=== PATIENT | female | born 1990 | race Caucasian/White ===

== ENCOUNTER 2020-05-21 16:52 | Outpatient (CLI) | payer OTHER, SELFPAY ==
--- NOTE | ~2020-05-21 | MR_ITS ---
EXAMINATION: MR lumbar spine wo con EXAM DATE: 05/21/2020 17:41 INDICATION: Low back pain. History of fall. Bilateral leg pain. TECHNIQUE: Multi-sequential, multiplanar MR images of the lumbar spine were obtained without contrast . Sagittal T1, T2, T2 fat saturation images. Axial T2 weighted images. There is no prior study for comparison. FINDINGS: There is chronic bilateral L5 spondylolysis with 9 mm anterolisthesis L5 on S1, moderate lo ss of this disc height. The vertebral bodies are otherwise aligned. The vertebral body and disc heigh ts are otherwise well maintained. The conus medullaris terminates at the L2 level and has normal sign al intensity and morphology. There are no suspicious marrow signal abnormalities. Paraspinal soft ti ssue is unremarkable. Level by level evaluation: Axial sequence limited from patient motion. T12-L1: Disc does not extend beyond the endplate margin. Facet arthropathy: None. Neural foraminal stenosis: No stenosis. Central canal stenosis: No stenosis. L1-L2: Disc does not extend beyond the endplate margin. Facet arthropathy: None. Neural foraminal stenosis: No stenosis. Central canal stenosis: No stenosis. L2-L3: Disc does not extend beyond the endplate margin. Facet arthropathy: None. Neural foraminal stenosis: No stenosis. Central canal stenosis: No stenosis. L3-L4: Disc does not extend beyond the endplate margin. Facet arthropathy: Minimal. Neural foraminal stenosis: No stenosis. Central canal stenosis: No stenosis. L4-L5: There is a mild diffuse disc bulge. Facet arthropathy: Mild. Neural foraminal stenosis: Mild bilateral. Central canal stenosis: No stenosis. L5-S1: There is a moderate diffuse disc bulge. Facet arthropathy: Mild. Neural foraminal stenosis: Moderate bilateral. Central canal stenosis: Mild. IMPRESSION: Chronic L5 spondylolysis, grade 2 anterolisthesis L5 on S1. Moderate neural foraminal nelson nosis. Reviewed, dictated and finalized at location B. IMPRESSION: Chronic L5 spondylolysis, grade 2 anterolisthesis L5 on S1. Moderat e neural foraminal stenosis.
== END 2020-05-21 16:53 | disposition home or self-care (01) ==
PROVIDERS: PCP Nurse Practitioner Family; Visit Provider Nurse Practitioner Adult Health
DX: M54.5 Low back pain (principal); M47.816 Spondylosis without myelopathy or radiculopathy, lumbar region; M43.16 Spondylolisthesis, lumbar region; M48.061 Spinal stenosis, lumbar region without neurogenic claudication
CPT/HCPCS: 72148

== ENCOUNTER 2020-06-25 08:03 | Outpatient (CLI) | payer OTHER, SELFPAY ==
--- NOTE | ~2020-06-25 | CT_ITS ---
EXAMINATION: CT abdomen pelvis w con EXAM DATE: 06/25/2020 08:58 INDICATION: Abdominal pain for one month. Loss of appetite. TECHNIQUE: Spiral CT of the abdomen and pelvis was performed following intravenous injection of 100 m L Omnipaque 350. Axial, coronal and sagittal images were reviewed. The dose-length product (DLP) fo r this examination was 225.80 mGy-cm. The exposure was tailored according to patient size (auto mA e xposure control), and iterative reconstruction (ASIR) was used as additional dose reduction technique . There is no prior study for comparison. FINDINGS: The liver, spleen, adrenal glands and pancreas are unremarkable. The gallbladder is contra cted but otherwise unremarkable. Portal and splenic veins are patent. Kidneys enhance symmetrically . There is no hydronephrosis. There is IUD which appears to be centrally located within the endome trium, expected position. The bladder is unremarkable. There is no retroperitoneal or pelvic lympha denopathy. Small umbilical fat-containing hernia. The appendix is normal. The stomach and small bowel are unremarkable. There is expected amount of c olonic stool. No free intraperitoneal gas. The heart is normal in size. There are no pericardial or pleural effusions. The lung bases are unremarkable. Chronic bilateral L5 spondylolysis with gra de 2 anterolisthesis L5 on S1. IMPRESSION: 1. No acute intra-abdominal findings. 2. Chronic L5 spondylolysis, grade 2 anterolisthesis. 3. Small umbilical hernia. Reviewed, dictated and finalized at location A. [employer]
== END 2020-06-25 08:04 | disposition home or self-care (01) ==
PROVIDERS: PCP Nurse Practitioner Family; Visit Provider Nurse Practitioner Family
DX: R10.9 Unspecified abdominal pain (principal); M47.816 Spondylosis without myelopathy or radiculopathy, lumbar region; K42.9 Umbilical hernia without obstruction or gangrene; Z97.5 Presence of (intrauterine) contraceptive device
CPT/HCPCS: 74177; Q9967

== ENCOUNTER 2021-06-14 00:21 | Observation (INO) | payer OTHER, SELFPAY ==
[2021-06-14] VITALS (8 sets, daily range): BP systolic 100–146; BP diastolic 52–90; PULSE 74–102; RESP 14–21; TEMP 36.3–37.9; O2SAT 98–100; BMI 18.8
--- NOTE | 2021-06-14 | ECHO_ITS ---
Patient Info Name: Bibi Castillo Age: 31 years : 1990 Gender: Female Ht: 64 in Wt: 105 lbs BSA: 1.46 m2 HR: 69 bpm BP: 113 / 59 mmHg Technical Quality: Fair Exam Date: 06/14/2021 1:58 PM Exam Location: [facility] Patient Status: Outpatient Admit Date: 06/14/2021 Staff Ordering Physician: Lavon Jones MD Farm Loan Inspector: Albin Dumont RDCS, RT Attending Provider: Lani Sparrow PA-C Referring Physician: Robert FARIAS; Exam Type: CA echo doppler color flow Study Info Indications I52 - Other heart disorders in diseases classified elsewhere Complete two-dimensional, color flow and Doppler transthoracic echocardiogram is performed. Strain analysis performed. Summary 1. Complete two-dimensional, color flow and Doppler transthoracic echocardiogram is performed. 2. Left ventricular chamber dimension is normal. 3. Left ventricular systolic function is normal, estimated at 65-70%. 4. The left ventricular diastolic function is normal. 5. E/e' 6 is not elevated. 6. Global longitudinal strain is normal at -20.6%. Left Ventricle E/e' 6 is not elevated. Global longitudinal strain is normal at -20.6%. Left ventricular chamber dimension is normal. Left ventricular systolic function is normal, estimated at 65-70%. The left ventricular diastolic function is normal. Right Ventricle Right ventricular systolic function is normal and with normal TAPSE 2.1 cm. Right ventricular chamber dimension is normal. Left Atria Left atrial chamber dimension is normal. Right Atria Right atrial chamber dimension is normal. Aortic Valve The aortic valve is not well visualized. Cannot determine number of aortic valve leaflets. There is no aortic valve stenosis. There is no aortic valve regurgitation. Pulmonic Valve The pulmonic valve is not well visualized. Mitral Valve There is no mitral valve stenosis. There is no mitral valve regurgitation. Tricuspid Valve There is no tricuspid valve regurgitation. Pericardium/Pleural There is no pericardial effusion. Inferior Vena Cava Normal inferior vena cava with >50% collapse upon inspiration consistent with normal right atrial pressure, 5 mmHg. Aorta The aortic root size at the sinus of Valsalva is normal. Left Ventricular Outflow Tract Name Value Normal LVOT 2D LVOT Diameter 2.0 cm LVOT Doppler LVOT Peak Gradient 5 mmHg LVOT Mean Gradient 2 mmHg LVOT VTI 19 cm LVOT VTI/AV VTI Ratio 0.8 LVOT Stroke Volume 59 ml LVOT CO 4.5 l/min LVOT CI 3.1 l/min/m2 Mitral Valve Name Value Normal MV Doppler MV Decel [place] 441 cm/s2 MV PHT
[2021-06-14] MEDS: LACTATED RINGERS 1,000 ML 999 ML IV CONT (01:15)
[2021-06-14 01:28] LABS: Basophils Absolute Auto 0.1 K/mm3 (0.0-0.1); Basophils Percent Auto 0.3 % (0.2-1.2); Eosinophils Absolute Auto 0.1 K/mm3 (0-0.3); Eosinophils Percent Auto 0.3 % (0-4.4); Hematocrit 38.6 % (37.0-47.0); Hemoglobin 12.2 g/dL (12.0-15.0); Immature Granulocyte Absolute 0.07 K/mm3 (0.00-0.031); Immature Granulocyte Percent A 0.5 % (0-0.5); Lymphocytes Absolute Auto 1.33 K/mm3 (0.9-3.2); Lymphocytes Percent Auto 8.8 % (18.3-44.2); Mean Corpuscular HGB Conc 31.6 g/dl (32-36); Mean Corpuscular Volume 91.7 fl (80-100); Monocytes Absolute Auto 0.8 K/mm3 (0.1-0.6); Monocytes Percent Auto 5.3 % (2.6-8.5); Neutrophils Absolute Auto 12.8 K/mm3 (1.3-6.7); Neutrophils Percent Auto 84.8 % (45.5-73.1); Platelet Count Result 357 k/mm3 (150-375); Red Blood Count 4.21 M/mm3 (4.2-5.4); Red Cell Distribution Width 12.9 % (11.5-14.5)
[2021-06-14 01:38] LABS: INR 1.1; Partial Thromboplastin Time 35.2 SECONDS (22.3-36.8); Prothrombin Time 14.1 Seconds (11.1-14.7)
[2021-06-14 01:39] LABS: Lactic Acid Reflex 0.9 mmol/L (0.7-2.1)
--- NOTE | 2021-06-14 01:47 | ED.SKABFB ---
HPI - Skin/Abscess/Foreign Bdy General Chief complaint: Skin/Abscess/Foreign Body <Cash Washington MD - Last Filed: 06/14/21 02:26> Stated complaint: multiple abscess, L arm, Bilat hips <Cash Washington MD - Last Filed: 06/14/21 02:26> Time Seen by Provider: 06/14/21 00:35 <Cash Washington MD - Last Filed: 06/14/21 02:26> History of Present Illness HPI narrative: Patient is a 31-year-old female who presents ER with concerns for abscess and cellulitis. 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 Reports over the last 2 weeks her left hip has been swelling and becoming worn intensely painful. She also reports chronic pain induration to her left proximal upper extremity for the last 6 months. Occasionally will have a small area of drainage. Patient reports due to increasing pain and swelling she is sought care. She has history of injection abscess in the past that required wound VAC application. <Cash Washington MD - Last Filed: 06/14/21 02:26> Related Data Allergies/Adverse reactions: Allergies Allergy/AdvReac Type Severity Reaction Status Date / Time amoxicillin Allergy Hives Verified 06/14/21 00:41 <Cash Washington MD - Last Filed: 06/14/21 02:26> Review of Systems Review of Systems: All systems reviewed & are unremarkable except as noted in HPI and below <Cash Washington MD - Last Filed: 06/14/21 02:26> Constitutional: Constitutional: Denies chills, Denies fever(s) and Denies weakness <Cash Washington MD - Last Filed: 06/14/21 02:26> ENT: Denies nasal congestion and Denies sore throat <Cash Washington MD - Last Filed: 06/14/21 02:26> Cardiovascular: Cardiovascular: Denies chest pain and Denies radiating jaw, neck or arm pain <Cash Washington MD - Last Filed: 06/14/21 02:26> Respiratory: Respiratory: Denies chest congestion, Denies cough and Denies dyspnea <Cash Washington MD - Last Filed: 06/14/21 02:26> Gastrointestinal: Gastrointestinal: Denies abdominal pain, Denies nausea and Denies vomiting <Cash Washington MD - Last Filed: 06/14/21 02:26> Musculoskeletal: Musculoskeletal: Denies arthralgias and Denies joint swelling <Cash Washington MD - Last Filed: 06/14/21 02:26> Integumentary/Breasts: Comments: Abscess and cellulitis of left lower extremity, redness left proximal arm. <Cash Washington MD - Last Filed: 06/14/21 02:26> [facility] Past Medical History Medical History: Medical History (Updated 06/14/21 @ 03:28 by Alice Kimball MD) Bipolar 1 disorder <Cash Washington MD - Last Filed: 06/14/21 02:26> Surgical History Surgical History: Surgical History (Updated 06/14/21 @ 01:50 by Cash Washington MD) History of section <Cash Washington MD - Last Filed: 06/14/21 02:26> Social History Social History: Social History (Updated 06/14/21 @ 01:50 by Cash Washington MD) Smoking status: Current every day smoker Substance use type: IV drugs <Cash Washington MD - Last Filed: 06/14/21 02:26> Exam Narrative: GENERAL: Chronically ill-appearing, thin, and in no acute distress. HEAD: Normocephalic, atraumatic. ENT: Mucous membranes moist. CHEST: Clear to auscultation. No respiratory distress. HEART: Tachycardic and regular. Normal peripheral pulses. ABDOMEN: Soft, nontender, nondistended. EXTREMITIES: Normal range of motion. No edema. SKIN: Warm, dry. Large abscess her left hip with old tract lin and surrounding cellulitis. Left upper extremity with mild erythema along the shoulder and proximal half of the humerus, tract lin noted, one fluctuant area but no overt abscess. NEURO: Alert and oriented x3. PSYCH: Normal mood and affect. <Cash Washington MD - Last Filed: 06/14/21 02:26> Course Reevaluation(s) Reevaluation #1: Patient presents with multiple infected wounds and abscess for IV drug use. Dr. Washington consult Dr. kumar irving
[2021-06-14] MEDS: HYDROmorphone HCL INJ (*CRX) 1 MG/ML SYR IV PUSH (02:07)
[2021-06-14 02:12] LABS: Alanine Aminotransferase 7 U/L (4-35); Albumin Level 4.5 g/dL (3.5-5.1); Alkaline Phosphatase 55 U/L (38-126); Anion Gap 11 mmol/L (8-16); Aspartate Amino Transferase 19 U/L (14-36); Bilirubin,Total 0.5 mg/dL (0.2-1.3); Blood Urea Nitrogen 17 mg/dL (7-17); CRP 5.9 mg/dL (<1.0); Calcium 9.6 mg/dL (8.4-10.2); Carbon Dioxide 29 mmol/L (22-30); Chloride 101 mmol/L (98-107); Estimated Glomerular Filt Rate > 60; Glucose 77 mg/dL (65-110); Potassium 4.2 mmol/L (3.4-5.0); Sodium 141 mmol/L (137-145)
--- NOTE | 2021-06-14 03:29 | PM.IMHP ---
H&P: HPI History of Present Illness Date/Time: 06/14/21 03:29 Chief Complaint: Abscesses Narrative: This is a 31-year-old female with past medical history significant for IVDU, A skin abscesses in the past, tobacco dependence, currently using E cigarettes, poor appetite, weight loss. Patient presented to emergency room due to multiple abscesses localized to the injection sites on her shoulders and hips, states that they usually go away but this time around she keeps getting especially the 1 on her shoulder keep coming back and is been there for months . While in the emergency room she had a fever and she had two of the abscesses I&D. Patient states that she has been having night sweats, chills, she denies any abdominal pain, nausea, vomiting ,diarrhea no shortness of breath, no cough, no sputum production. Preliminary workup was significant for a C reactive protein was 5.9 a total white blood cell count of 15,000. Review of Systems Review of Systems: Multiple skin abscesses weight loss poor appetite chills Constitutional: Constitutional: Reports chills, Reports fever(s), Reports lethargy, Reports malaise, Reports night sweats, Reports weakness and Reports weight loss Eyes: Eyes: Denies change in vision ENT: Denies dysphagia, Denies vertigo, Denies dizziness, Denies nasal congestion, Denies nasal discharge, Denies nasal obstruction and Denies odynophagia Cardiovascular: Cardiovascular: Denies irregular heart rhythm, Denies claudication, Denies leg edema, Denies lightheadedness, Denies radiating jaw, neck or arm pain, Denies palpitations, Denies dyspnea, Denies dyspnea on exertion and Denies orthopnea Respiratory: Respiratory: Denies cough, Denies excessive phlegm production, Denies dyspnea and Denies wheezing Gastrointestinal: Gastrointestinal: Denies abdominal pain, Denies dyspepsia, Denies heartburn, Denies diarrhea, Denies nausea and Denies vomiting Genitourinary: Genitourinary: Denies dysuria and Denies flank pain Musculoskeletal: Musculoskeletal: Denies arthralgias and Denies joint swelling Integumentary/Breasts: Skin/Breast: Reports non-healing lesions (Abscesses localized to the injection area) Neurologic: Denies focal weakness and Denies Sensory deficit (Neuro) Psychiatric: Psychiatric: Reports no additional psychiatric complaints and Reports as per HPI Endocrine: Endocrine: Reports no additional endocrine complaints and Reports as per HPI Hematologic/Lymphatic: Hematologic/Lymphatic: Reports no additional hematologic/lymphatic complaints and Reports as per HPI Allergic/Immunologic: Allergic/Immunologic: Reports no additional allergic/immunologic complaints and Reports as per HPI [facility] Past Medical History Medical History (Updated 06/14/21 @ 04:15 by Lavon Jones MD) Bipolar 1 disorder Surgical History Surgical History (Updated 06/14/21 @ 01:50 by Cash Washington MD) History of section Social History Social History (Updated 06/14/21 @ 01:50 by Cash Washington MD) Smoking status: Current every day smoker Substance use type: IV drugs Meds Home Medications and Allergies Allergies Allergy/AdvReac Type Severity Reaction Status Date / Time amoxicillin Allergy Hives Verified 06/14/21 00:41 Vital Signs Vital Signs - 24 hr 06/14/21 00:28 06/14/21 01:50 06/14/21 02:14 Temperature 100.3 F H 99.4 F 99.4 F Pulse Rate 102 H 93 Respiratory Rate 20 18 Blood Pressure 146/90 H 113/59 L Pulse Oximetry 99 100 Exam Narrative: Laying in nupur Const: General: cooperative, comfortable, no acute distress, well developed, alert, awake, ill appearing and other (Appears older than stated age) Nutritional Appearance: average body habitus and thin Orientation/consciousness: patient oriented x3 HENMT: Head: normal to inspection, normocephalic and atraumatic Ears: hearing grossly normal bilaterally General nose exam: Normal external nose present Face and sinus: normal facial
[2021-06-14] MEDS: SODIUM CHLORIDE 0.9% IV 1,000 ML 125 ML IV CONT (06:57)
[2021-06-14] MEDS: ENOXAPARIN 40 MG/0.4 ML SYRINGE SUB-Q (09:13)
[2021-06-14 09:58] LABS: Hepatitis B Surface Antigen Negative (Negative)
[2021-06-14 10:04] LABS: HAV RESULT Negative (Negative); Hepatitis B Core IgM Result Negative (Negative)
[2021-06-14 10:07] LABS: HIV 1/2 Ab P24 Ag Result Negative (Negative)
--- NOTE | 2021-06-14 10:14 | PM.CNGS ---
Assessment and Plan Assessment and plan (1) Abscess of skin or subcutaneous tissue: Code(s): L02.91 - Cutaneous abscess, unspecified Status: Acute Assessment and Plan: s/p I and D, cont to follow closely, cont local wound care, IV abx (2) Sepsis: Code(s): A41.9 - Sepsis, unspecified organism Status: Acute Assessment and Plan: see above (3) Active intravenous drug use: Code(s): F19.90 - Other psychoactive substance use, unspecified, uncomplicated Status: Acute Assessment and Plan: encourage cessation History of Present Illness Consult details Consult date: 06/14/21 Reason for consult: wound care Requesting physician: Lani Sparrow PA-C Narrative: Pt is a 31 y/o F c h/o IVDA presenting c large L hip abscess. Pt reports she injected at that site about 10 days ago and has since developed large abscess. Pt reports she gets multiple abscesses at injection sites but they usually go away with some conservative treatment. Pt reports this abscess has just cont to get worse. Pt reports f/c, poor appetite, N/V. Pt had area drained in ED and reports area feels better this am. Review of Systems Constitutional: Constitutional: Reports anorexia, Reports body ache(s), Reports chills, Reports fatigue, Reports fever(s), Denies increased appetite, Reports lethargy, Reports malaise, Reports poor appetite, Reports weakness, Denies weight gain and Denies weight loss Eyes: Eyes: Reports no additional eye complaints ENT: Reports system reviewed and no additional complaints, except as documented Cardiovascular: Cardiovascular: Reports no additional cardiovascular complaints Respiratory: Respiratory: Reports no additional respiratory complaints Gastrointestinal: Gastrointestinal: Reports no additional gastrointestinal complaints Genitourinary: Genitourinary: Reports no additional female genitourinary complaints Musculoskeletal: Musculoskeletal: Reports as per HPI Integumentary/Breasts: Skin/Breast: Reports as per HPI, Reports furuncle and Reports wounds Neurologic: Reports system reviewed and no additional complaints, except as documented Psychiatric: Psychiatric: Reports no additional psychiatric complaints Endocrine: Endocrine: Reports no additional endocrine complaints Hematologic/Lymphatic: Hematologic/Lymphatic: Reports no additional hematologic/lymphatic complaints Allergic/Immunologic: Allergic/Immunologic: Reports no additional allergic/immunologic complaints PMFSH Past Medical History Medical History Bipolar 1 disorder Surgical History Surgical History History of section Social History Social History Smoking packs per day: 1 Smoking cigarettes per day: 20.0 Years smoked: 13 Smoking pack-years: 13.00 Smoking status: Heavy tobacco smoker Tobacco type: cigarettes Alcohol intake: current Drinks per week: 1 Substance use: current Substance use type: heroin Last use: 06/13/21 0200 Spiritual care concerns: No Comments FH- pt denies any known FH of skin cancers, disorders Meds Home Medications and Allergies Allergies Allergy/AdvReac Type Severity Reaction Status Date / Time amoxicillin Allergy Hives Verified 06/14/21 05:38 Vital Signs Vital Signs - 24 hr 06/14/21 00:28 06/14/21 01:50 06/14/21 02:14 Temperature 37.9 C H 37.4 C 37.4 C Pulse Rate 102 H 93 Respiratory Rate 20 18 Blood Pressure 146/90 H 113/59 L Pulse Oximetry 99 100 06/14/21 06:45 Temperature 36.3 C L Pulse Rate 79 Respiratory Rate 21 H Blood Pressure 100/53 L Pulse Oximetry 100 Exam Const: General: cooperative, alert, awake, Physically active, acute distress mild, anxious, ill appearing, poor hygiene and tired appearing Nutritional Appearance: malnourished Orientation/c
[2021-06-14 10:15] LABS: Hepatitis C Virus Antibody Negative (Negative)
--- NOTE | 2021-06-14 15:21 | PM.IMPN ---
Progress Note: A&P Assessment and Plan (1) Abscess of skin or subcutaneous tissue: Code(s): L02.91 - Cutaneous abscess, unspecified Status: Acute Assessment and Plan: Status post I&D of the left hip and shoulder. Patient states the left shoulder I&D did not produce any drainage. -no cultures sent -continue on vancomycin -blood cultures pending (2) Active intravenous drug use: Code(s): F19.90 - Other psychoactive substance use, unspecified, uncomplicated Status: Acute Assessment and Plan: She has relapsed on heroin and is currently going through withdrawal -will order Ativan and [place] and adjust as needed -she is negative for HIV and hepatitis. I did educate her on using clean needles if she were to continue doing drugs. I also advised her not to do drugs and follow back up with her methadone clinic (3) Tobacco dependence: Code(s): F17.200 - Nicotine dependence, unspecified, uncomplicated Status: Acute Assessment and Plan: Nicotine patch as needed (4) Weight loss: Code(s): R63.4 - Abnormal weight loss Status: Acute Assessment and Plan: Continue regular diet and supplements -HIV negative Time Spent With Patient Time with patient: 25 - 35 minutes Subjective Date/time seen: 06/14/21 15:21 Interval history: Pt is a 31-year-old female here for multiple abscesses. Patient was seen today and states she has diffuse pain throughout her body but most specifically at the left hip and the left shoulder. She said the pain is a 6/10 right now. She is also experiencing withdraw from heroin and having anxiety. She has not had any diarrhea yet but says she usually starts having diarrhea when she goes into withdrawal. She has gone to a methadone clinic in the past but has not been back in a while. She says she uses clean needles when she injects. She denies chest pain, shortness of breath, abdominal pain, leg swelling or vomiting. She does have a little nausea associated with her withdrawal. Review of Systems Review of Systems: All systems reviewed & are unremarkable except as noted in HPI and below Exam Narrative: General: Underweight patient resting comfortably in bed in no acute distress HEENT: normocephalic Neck: supple Neuro: Alert and oriented x4 CV:RRR Resp:CTA Abd: Soft, non distended. No pain to palpation. Positive bowel sounds Extremities: Left hip with a small incision from recent abscess with iodoform gauze. No surrounding erythema but tender to palpation+++. Left shoulder abscess with mild swelling and pain to palpation. Multiple track lin Objective Data Vital Signs Vital Signs: Vital Signs - 24 hr 06/14/21 00:28 06/14/21 01:50 06/14/21 02:14 Temperature 100.3 F H 99.4 F 99.4 F Pulse Rate 102 H 93 Respiratory Rate 20 18 Blood Pressure 146/90 H 113/59 L Pulse Oximetry 99 100 06/14/21 06:45 06/14/21 08:00 06/14/21 10:56 Temperature 97.4 F L Pulse Rate 79 79 Respiratory Rate 21 H 21 H Blood Pressure 100/53 L Pulse Oximetry 100 98 98 Intake/Output Intake/Output: Intake & Output 06/11/21 06/12/21 06/13/21 06/14/21 23:59 23:59 23:59 23:59 Intake Total 1690 Balance 1690 Meds/Results Medications: Active Medications Generic Name Dose Route Start Last Admin Trade Name Freq PRN Reason Stop Dose Admin Enoxaparin Sodium 40 mg 06/14/21 09:00 06/14/21 09:13 Enoxaparin 40 Mg/0.4 Ml Syringe SUB-Q 40 mg DAILY CHELO Administration Acetaminophen 650 mg in 65 mls @ 260 mls/hr 06/14/21 03:28 Ofirmev 650 Mg Ivpb IVPB 06/15/21 03:27 Q6H PRN Mild Pain (1-3) or Fever Sodium Chloride 1,000 mls @ 125 mls/hr 06/14/21 03:30 06/14/21 06:57 Normal Saline Iv IV CONT 125 mls/hr .Q8H CHELO Administration Vancomycin HCl 750 mg in 250 mls @ 250 mls/hr 06/14/21 15:00 Vancomycin 750 Mg/D5w 250 Ml IVPB Q12H CHELO Ondansetron HCl 4 mg 06/14/21 0
[2021-06-14] MEDS: HYDROcodone/acetaminophen (*CRX) 5-325 MG TABLET 1 TAB PO (18:44)
--- NOTE | 2021-06-14 21:40 | PC.NURSE ---
On 06/14/21 at about 21:00 P.t. received food from an out side source. After eating P.t. became lethargic but was easily arousable. I became suspicious that she may have taken some drugs. VS were taken and were normal. I informed the apartment house manager of the situation. Passed info on at report.
[2021-06-15] MEDS: SODIUM CHLORIDE 0.9% IV 1,000 ML 50 ML IV CONT (03:23)
[2021-06-15 06:00] VITALS: BP 110/61; PULSE 68; RESP 16; TEMP 36.6; O2SAT 98
[2021-06-15 06:40] LABS: Basophils Absolute Auto 0.1 K/mm3 (0.0-0.1); Basophils Percent Auto 0.5 % (0.2-1.2); Eosinophils Absolute Auto 0.2 K/mm3 (0-0.3); Eosinophils Percent Auto 2.1 % (0-4.4); Hematocrit 33.1 % (37.0-47.0); Hemoglobin 10.9 g/dL (12.0-15.0); Immature Granulocyte Absolute 0.07 K/mm3 (0.00-0.031); Immature Granulocyte Percent A 0.6 % (0-0.5); Lymphocytes Absolute Auto 2.17 K/mm3 (0.9-3.2); Lymphocytes Percent Auto 18.7 % (18.3-44.2); Mean Corpuscular HGB Conc 32.9 g/dl (32-36); Mean Corpuscular Hemoglobin 29.9 pg (26-34); Mean Corpuscular Volume 90.7 fl (80-100); Mean Platelet Volume 10.4 fl (7.4-10.4); Monocytes Absolute Auto 0.8 K/mm3 (0.1-0.6); Monocytes Percent Auto 6.8 % (2.6-8.5); Neutrophils Absolute Auto 8.3 K/mm3 (1.3-6.7); Neutrophils Percent Auto 71.3 % (45.5-73.1); Platelet Count Result 283 k/mm3 (150-375); Red Blood Count 3.65 M/mm3 (4.2-5.4); Red Cell Distribution Width 13.1 % (11.5-14.5); White Blood Count 11.6 K/mm3 (4.5-10.0)
[2021-06-15 07:27] LABS: Alanine Aminotransferase 7 U/L (4-35); Albumin Level 3.3 g/dL (3.5-5.1); Alkaline Phosphatase 43 U/L (38-126); Anion Gap 7 mmol/L (8-16); Aspartate Amino Transferase 21 U/L (14-36); Bilirubin,Total 0.1 mg/dL (0.2-1.3); Blood Urea Nitrogen 16 mg/dL (7-17); Carbon Dioxide 22 mmol/L (22-30); Chloride 111 mmol/L (98-107); Estimated CRCL calculation 128 ml/min; Estimated Glomerular Filt Rate > 60; Glucose 97 mg/dL (65-110); Magnesium 1.9 mg/dL (1.6-2.3); Potassium 4.3 mmol/L (3.4-5.0); Sodium 140 mmol/L (137-145)
[2021-06-15] MEDS: ENOXAPARIN 40 MG/0.4 ML SYRINGE SUB-Q (09:41)
--- NOTE | 2021-06-15 12:01 | PM.PNGS ---
Progress Note: A&P Assessment and Plan (1) Abscess of skin or subcutaneous tissue: Code(s): L02.91 - Cutaneous abscess, unspecified Status: Acute Assessment and Plan: Continue daily packing changes with quarter-inch iodoform gauze. Continue antibiotics per hospitalist service. Okay to discharge once wound care is better tolerated and proper antibiotic coverage has been determined. (2) Active intravenous drug use: Code(s): F19.90 - Other psychoactive substance use, unspecified, uncomplicated Status: Acute (3) Sepsis: Code(s): A41.9 - Sepsis, unspecified organism Status: Acute (4) Tobacco dependence: Code(s): F17.200 - Nicotine dependence, unspecified, uncomplicated Status: Acute Subjective Subjective Date/Time Seen: 06/15/21 12:01 Patient reports: afebrile Interval history: Patient still complains of pain at abscess sites. Exam Skin: Other: Left shoulder induration and slight erythema, but no significant fluctuance. Left hip wound with minimal erythema, but still with purulence drainage. Packing removed. Will be repacked by nurse. Objective Data Vital Signs Vital Signs: Vital Signs - 24 hr 06/14/21 14:00 06/14/21 22:00 06/15/21 06:00 Temperature 36.3 C L 36.3 C L 36.6 C Pulse Rate 74 75 68 Respiratory Rate 14 16 16 Blood Pressure 130/78 107/52 L 110/61 Pulse Oximetry 99 100 98 Intake/Output Intake/Output: Intake & Output 06/12/21 06/13/21 06/14/21 06/15/21 23:59 23:59 23:59 23:59 Intake Total 3545 920 Balance 3545 920 Meds/Results Medications: Active Medications Generic Name Dose Route Start Last Admin Trade Name Freq PRN Reason Stop Dose Admin Hydrocodone Bitart/Acetaminophen 1 tab 06/14/21 15:22 06/14/21 18:44 Hydrocodone/Acetaminophen (*Crx) 5-325 Mg Tablet PO 1 tab Q4H PRN Administration Pain Rated 5-10 Enoxaparin Sodium 40 mg 06/14/21 09:00 06/15/21 09:41 Enoxaparin 40 Mg/0.4 Ml Syringe SUB-Q 40 mg DAILY CHELO Administration Vancomycin HCl 750 mg in 250 mls @ 250 mls/hr 06/14/21 15:00 06/15/21 04:25 Vancomycin 750 Mg/D5w 250 Ml IVPB Infused Q12H CHELO Infusion Lorazepam 0.5 mg 06/14/21 15:22 Lorazepam (*Crx) 0.5 Mg Tablet PO Q6H PRN Anxiety Nicotine 1 patch 06/14/21 15:37 Nicotine (*Pbkc) 14 Mg Patch TRANSDERM QAM PRN smoking craving Ondansetron HCl 4 mg 06/14/21 03:28 Ondansetron Inj 4 Mg/2 Ml Vial IV PUSH Q4H PRN Nausea Labs Labs: Laboratory Results - last 24 hr 06/15/21 06/15/21 06:27 06:27 WBC 11.6 H RBC 3.65 L Hgb 10.9 L Hct 33.1 L MCV 90.7 MCH 29.9 MCHC 32.9 RDW 13.1 Plt Count 283 MPV 10.4 Immature Gran % (Auto) 0.6 H Neut % (Auto) 71.3 Lymph % (Auto) 18.7 [place] % (Auto) 6.8 Eos % (Auto) 2.1 Baso % (Auto) 0.5 Lymph # (Auto) 2.17 [place] # (Auto) 0.8 H Eos # (Auto) 0.2 Baso # (Auto) 0.1 Abs Immat Gran (auto) 0.07 H Absolute Neuts (auto) 8.3 H Absolute Nucleated RBC 0.0 Nucleated RBC % 0.0 Sodium 140 Potassium 4.3 Chloride 111 H Carbon Dioxide 22 Anion Gap 7 L BUN 16 Creatinine 0.40 L Estim Creat Clear Calc 128 Estimated GFR > 60 Glucose 97 Calcium 9.0 Magnesium 1.9 Total Bilirubin 0.1 L AST 21 ALT 7 Alkaline Phosphatase 43 Total Protein 7.0 Albumin 3.3 L Quality VTE Prophylaxis VTE prophylaxis: mechanical ordered Amg Follow-up Billing Observation Follow-up [id number] Subseq OBS Strfwd
[2021-06-15] MEDS: HYDROcodone/acetaminophen (*CRX) 5-325 MG TABLET 1 TAB PO (12:11)
[2021-06-15] MEDS: LORazepam (*CRX) 0.5 MG TABLET PO (12:12)
--- NOTE | 2021-06-15 12:14 | PM.IMPN ---
Progress Note: A&P Assessment and Plan (1) Abscess of skin or subcutaneous tissue: Code(s): L02.91 - Cutaneous abscess, unspecified Status: Acute Assessment and Plan: Status post I&D of the left hip and shoulder. Patient states the left shoulder I&D did not produce any drainage. -no cultures sent, will order a culture since she is still having drainage. -continue on vancomycin -blood cultures NGTD (2) Active intravenous drug use: Code(s): F19.90 - Other psychoactive substance use, unspecified, uncomplicated Status: Acute Assessment and Plan: She has relapsed on heroin and is currently going through withdrawal -continue Ativan and [place] and adjust as needed -she is negative for HIV and hepatitis. I did educate her on using clean needles if she were to continue doing drugs. I also advised her not to do drugs and follow back up with her methadone clinic -echo without evidence of vegetation but was a TTE. No bacteremia, no endocarditis suspected at this time (3) Tobacco dependence: Code(s): F17.200 - Nicotine dependence, unspecified, uncomplicated Status: Acute Assessment and Plan: Nicotine patch as needed (4) Weight loss: Code(s): R63.4 - Abnormal weight loss Status: Acute Assessment and Plan: Continue regular diet and supplements -HIV negative Subjective Date/time seen: 06/15/21 12:14 Interval history: Pt is a 31-year-old female here for multiple abscesses. Patient was seen today she is having some pain in her shoulder and hip. She is no longer having fevers and feels little bit better but now she feels like she is going into withdrawal. She says she is anxious and fidgety which is consistent with her withdrawal. She suspects that she will have diarrhea soon as well but has not had any recently. Exam Narrative: General: Underweight patient resting comfortably in bed in no acute distress HEENT: normocephalic Neck: supple Neuro: Alert and oriented x4 CV:RRR Resp:CTA Abd: Soft, non distended. No pain to palpation. Positive bowel sounds Extremities: Left hip with a small incision from recent abscess with iodoform gauze. Purulent drainage noted. No surrounding erythema but tender to palpation+++. Left shoulder abscess with mild swelling and pain to palpation. Multiple track lin Objective Data Vital Signs Vital Signs: Vital Signs - 24 hr 06/14/21 14:00 06/14/21 22:00 06/15/21 06:00 Temperature 97.3 F L 97.3 F L 97.8 F Pulse Rate 74 75 68 Respiratory Rate 14 16 16 Blood Pressure 130/78 107/52 L 110/61 Pulse Oximetry 99 100 98 Intake/Output Intake/Output: Intake & Output 06/12/21 06/13/21 06/14/21 06/15/21 23:59 23:59 23:59 23:59 Intake Total 3545 920 Balance 3545 920 Meds/Results Medications: Active Medications Generic Name Dose Route Start Last Admin Trade Name Freq PRN Reason Stop Dose Admin Hydrocodone Bitart/Acetaminophen 1 tab 06/14/21 15:22 06/15/21 12:11 Hydrocodone/Acetaminophen (*Crx) 5-325 Mg Tablet PO 1 tab Q4H PRN Administration Pain Rated 5-10 Enoxaparin Sodium 40 mg 06/14/21 09:00 06/15/21 09:41 Enoxaparin 40 Mg/0.4 Ml Syringe SUB-Q 40 mg DAILY CHELO Administration Vancomycin HCl 750 mg in 250 mls @ 250 mls/hr 06/14/21 15:00 06/15/21 04:25 Vancomycin 750 Mg/D5w 250 Ml IVPB Infused Q12H CHELO Infusion Lorazepam 0.5 mg 06/14/21 15:22 06/15/21 12:12 Lorazepam (*Crx) 0.5 Mg Tablet PO 0.5 mg Q6H PRN Administration Anxiety Nicotine 1 patch 06/14/21 15:37 Nicotine (*Pbkc) 14 Mg Patch TRANSDERM QAM PRN smoking craving Ondansetron HCl 4 mg 06/14/21 03:28 Ondansetron Inj 4 Mg/2 Ml Vial IV PUSH Q4H PRN Nausea Labs Labs: Laboratory Results - last 24 hr 06/15/21 06/15/21 06:27 06:27 WBC 11.6 H RBC 3.65 L Hgb 10.9 L Hct 33.1 L MCV 90.7 MCH 29.9 MCHC 32.9 RDW 13.1 P
[2021-06-15 14:00] VITALS: BP 105/63; PULSE 65; RESP 20; TEMP 36.3; O2SAT 91
[2021-06-15 15:47] LABS: Vancomycin Trough < 5.0 ug/mL (10.0-20.0)
--- NOTE | 2021-06-15 18:00 | PM.EVENT ---
Event Note Event Note Event Note: DOS 06/15/21 I got a call from the nursing staff that the patient had a visitor bring her presumably illegal substances in a syringe. These were confiscated and the patient decided to leave against medical advice. The nursing staff informed her of the risks of such and the patient insisted on leaving. They called to inform me and I did not recommend discharge as it is not safe and her treatment is not complete. With that being said, I did not want her to leave without some sort of treatment and I did prescribe her Bactrim DS and she needs to follow-up with her primary care physician, an urgent care or even an ER next week and to come back if she has any additional issues.
--- NOTE | 2021-06-15 18:30 | PC.NURSE ---
This nurse noted a visitor coming to visit this patient. Per instructed, belongings were looked through since previous shift noted patient appearing to be under the influence of a substance after a pizza was delivered for dinner on 06/14/2021. Within the pillowcase and pillow that was brought in for patient was 2 insulin syringes with a pre-filled substance. Patient has a history of heroin use per the patient for the past nine years when asked earlier in the shift. This nurse brought syringes to charge nurse/nurse manufacturing operations manager. Patient noted wanted to sign out against medical advice once noted that her belongings were confiscated and was going to remove IV herself. Charge nurse/nurse manufacturing operations manager made security aware. Patient's hospitalist updated and made aware of situation and desire to leave against medical advice. Per flooring helper who spoke with patient's hospitalist, a script of antibiotics were sent to the [facility] listed. cutting room supervisor made aware of situation and patient choosing to leave AMA. Patient signed AMA form. IV verified was removed prior to patient leaving to the Right [facility] and patient made aware of antibiotic script sent to pharmacy.
--- NOTE | 2021-06-15 18:30 | PC.NURSE ---
RN notified manager community that patient visitor brought items from home; Per morning huddle, it had been reported that patient had pizza brought in on night custodian and that patient acted differently afterwards. In observation that outside items were brought in at time of discovery, RN had checked patient belongings and noticed 2 insulin syringes pre-filled with fluid and removed them from patient room. Security was notified to standby so staff could discuss removal of items. Visitor stopped in hallway, denies familial relationship to patient, states he is just a friend and I didn't know that was in there, she just asked me to bring her some stuff and walked away towards the elevator. Provider was notified and requested that ambulatory orders for Septrum DS be entered for patient. During that time, staff notified that patient was witnessed entering the back staircase of the unit. Security escorted patient out of building. AMA document was printed and staff was able to obtain signature on form, IV was removed per patient. Syringes in possession of manager community and will be provided to security safe. cashier supervisor notified. Consult notified.
--- NOTE | 2021-06-18 09:55 | PC.NURSE ---
Wound cx is sensitive to Bactrim. Pt sent home on Bactrim
--- NOTE | 2021-06-21 10:05 | PC.NURSE ---
Blood cx are negative.
== END 2021-06-15 18:30 | disposition left against medical advice (07) ==
LOC: ANHED 03:28 → ANH3MEDSUR 04:55
PROVIDERS: General Practice; Admitting Provider Internal Medicine; Emergency Provider Emergency Medicine; PCP Nurse Practitioner Family; Visit Provider Physician Assistant
DX: L02.414 Cutaneous abscess of left upper limb (principal); L02.416 Cutaneous abscess of left lower limb; L02.415 Cutaneous abscess of right lower limb; F19.90 Other psychoactive substance use, unspecified, uncomplicated; F31.9 Bipolar disorder, unspecified; F17.290 Nicotine dependence, other tobacco product, uncomplicated; F11.20 Opioid dependence, uncomplicated
CPT/HCPCS: 10060; 36415; 80053; 80074; 80202; 83605; 83735; 85025; 85610; 85730; 86140; 86703; 87040; 87070; 87147; 87186; 87205; 93306; 96361; 96365; 96366; 96367; 96372; 96375; 96376; 99285; A9270; G0378; G0379; G0432; J0131; J1170; J1650; J3370; J7030; J7120

== ENCOUNTER 2022-12-13 05:30 | Inpatient (IN) | payer OTHER, SELFPAY ==
[2022-12-13] VITALS (7 sets, daily range): BP systolic 99–132; BP diastolic 60–88; PULSE 68–92; RESP 12–18; TEMP 36.1–36.9; O2SAT 98–100
--- NOTE | ~2022-12-13 | CT_ITS ---
EXAMINATION: CT abdomen pelvis w con INDICATION: Gluteal abscesses TECHNIQUE: Computed tomographic images of the abdomen and pelvis were obtained after the administrati on of 100 cc of Omnipaque 350 intravenous contrast. The dose-length product (DLP) was 175.56 mGy-cm. Automated exposure control and iterative reconstruction technique were employed. COMPARISON: 06/25/2020 FINDINGS: Minimal dependent atelectasis is present in the lung bases. The heart size is normal. The l iver, spleen, gallbladder, and adrenal glands are normal. Pancreas divisum is noted. The kidneys are unremarkable. Hyperattenuating ingested material is seen in the stomach and proximal duodenum. No pat hologically enlarged abdominal or pelvic lymph nodes are identified. No free intraperitoneal gas or e vidence of bowel obstruction. An IUD is noted in the uterus. There is diffuse thickening of the bilat eral gluteal soft tissues. There is a 4.1 x 0.9 cm left buttock soft tissue abscess. There also appea r to be a couple smaller left buttock abscesses. There are bilateral L5 pars defects with grade 2 an terolisthesis of L5 on S1. IMPRESSION: 1. Diffuse cellulitis and induration of the bilateral gluteal soft tissues with left buttock abscesse s measuring up to 4.1 x 0.9 cm. Reviewed, dictated and finalized at location A. IMPRESSION: 1. Diffuse cellulitis and induration of the bilateral gluteal soft tissues with left buttock abscesses measuring up to 4.1 x 0.9 cm.
--- NOTE | 2022-12-13 09:32 | ED.GENADULT ---
HPI - General Adult General Chief complaint: Skin/Abscess/Foreign Body Stated complaint: wound on butt Time Seen by Provider: 12/13/22 08:34 History of Present Illness HPI narrative: 32-year-old female presented to the emergency department for evaluation of multiple sores on her buttocks secondary to heroin injection. Patient states these have been worsening over the last 2 months. Patient denies any associated chest pain or shortness of breath. Related Data Home Medications Medication Instructions Recorded Confirmed No Home Medications 12/13/22 12/13/22 Allergies Allergy/AdvReac Type Severity Reaction Status Date / Time amoxicillin Allergy Hives Verified 06/14/21 05:38 Review of Systems Review of Systems: All systems reviewed & are unremarkable except as noted in HPI and below PMFSH Past Medical History Medical History (Updated 12/13/22 @ 16:44 by Seb Hill MD) Bipolar 1 disorder Heroin addiction Surgical History Surgical History History of section Family History Family History Unknown Adopted Social History Social History (Updated 12/13/22 @ 15:18 by Leticia Tariq NP) Social History: She had one daughter and she passed at the age of 64 years old. She is single . code status : full code Smoking packs per day: 0.5 Smoking cigarettes per day: 10.0 Years smoked: 25 Smoking pack-years: 12.50 Smoking status: Heavy tobacco smoker Tobacco type: cigarettes Alcohol intake: current Drinks per week: 1 Substance use: current Substance use type: crack/cocaine and heroin Other substance usage details: 08/18 pint steffidka Last use: 06/13/21 0200 Lack of Transportation: No Lack of Food: Never True Current Housing: I Have Housing Concerned About Future Housing: No Difficulty Paying Gas/Electric Bills: No Difficulty Paying for Meds: No Currently Unemployed: No Education: High School Diploma/GED Difficulty w/ Childcare or Family Care: No Spiritual care concerns: No Exam Narrative: APPEARANCE: Cachectic appearing HEAD: normocephalic, atraumatic. EYES: PERRLA/EOMI, conjunctivae clear. NOSE: Normal no drainage EARS:TMS clear with good light reflex. THROAT: Pharynx clear, no exudate. NECK: Supple. No adenopathy, no masses. RESPIRATORY: Airway patent, respirations nonlabored. Clear to auscultation bilaterally, no rales, rhonchi, wheezing. CARDIOVASCULAR: Regular rate and rhythm without murmurs rubs or gallops. ABDOMINAL: Soft, nontender, nondistended, normal bowel sounds MUSCULOSKELETAL: Moves all extremities. NEURO: Alert. Cranial nerves II through XII intact. Good gait. Good coordination SKIN: Extensive cellulitis and abscesses on bilateral buttocks Course Course Emergency Course: 32 old female who admits to heroin abuse presented the ED for evaluation of worsening abscesses on bilateral buttock. Patient is afebrile but does have a leukocytosis of 11.7. Patient denies any associated chest pain or shortness of breath. Patient's CMP is similar to her baseline. Patient had a negative hepatitis and HIV screen. Patient was admitted to the hospitalist and IV antibiotics were started in the emergency department. Case was discussed with surgery and Dr. Melendez will see the patient as consult with anticipated surgical debridement on Thursday. Patient will be admitted and made n.p.o. at midnight. Vital Signs Vital signs: Vital Signs Temperature 98.5 F 12/13/22 05:34 Pulse Rate 92 12/13/22 05:34 Respiratory Rate 18 12/13/22 05:34 Blood Pressure 119/86 12/13/22 05:34 Pulse Oximetry 99 12/13/22 05:34 Oxygen Delivery Room Air 12/13/22 05:34 Temperature 98.5 F 12/13/22 05:34 Pulse Rate 68 12/13/22 13:58 Respiratory Rate 14 12/13/22 13:58 Blood Pressure 114/80 12/13/22 13:58 Pulse Oximetry 100 12/13/22
[2022-12-13 10:31] LABS: Basophils Absolute Auto 0.1 K/mm3 (0.0-0.1); Basophils Percent Auto 0.4 % (0.2-1.2); Eosinophils Absolute Auto 0.1 K/mm3 (0-0.3); Eosinophils Percent Auto 0.6 % (0-4.4); Hematocrit 38.8 % (37.0-47.0); Hemoglobin 12.3 g/dL (12.0-15.0); Immature Granulocyte Absolute 0.04 K/mm3 (0.00-0.031); Immature Granulocyte Percent A 0.3 % (0-0.5); Lymphocytes Absolute Auto 1.34 K/mm3 (0.9-3.2); Lymphocytes Percent Auto 11.5 % (18.3-44.2); Mean Corpuscular HGB Conc 31.7 g/dl (32-36); Mean Corpuscular Hemoglobin 29.6 pg (26-34); Mean Corpuscular Volume 93.5 fl (80-100); Mean Platelet Volume 9.4 fl (7.4-10.4); Monocytes Absolute Auto 0.6 K/mm3 (0.1-0.6); Monocytes Percent Auto 4.8 % (2.6-8.5); Neutrophils Absolute Auto 9.6 K/mm3 (1.3-6.7); Neutrophils Percent Auto 82.4 % (45.5-73.1); Platelet Count Result 317 k/mm3 (150-375); Red Blood Count 4.15 M/mm3 (4.2-5.4); Red Cell Distribution Width 13.4 % (11.5-14.5); White Blood Count 11.7 K/mm3 (4.5-10.0)
[2022-12-13 10:42] LABS: Alanine Aminotransferase 14 U/L (6-35); Albumin Level 4.2 g/dL (3.5-5.1); Alkaline Phosphatase 55 U/L (38-126); Anion Gap 5 mmol/L (8-16); Aspartate Amino Transferase 25 U/L (14-36); Bilirubin,Total 0.5 mg/dL (0.2-1.3); Blood Urea Nitrogen 16 mg/dL (7-17); Calcium 8.6 mg/dL (8.4-10.2); Carbon Dioxide 31 mmol/L (22-30); Chloride 102 mmol/L (98-107); Estimated CRCL calculation 102 ml/min; Estimated Glomerular Filt Rate > 60; Glucose 110 mg/dL (65-110); Potassium 3.4 mmol/L (3.4-5.0); Sodium 138 mmol/L (137-145)
[2022-12-13] MEDS: metroNIDAZOLE 500 MG/ISO 100ML 500 MG/100 ML BAG 100 MG IVPB ×2 (10:47→17:40)
[2022-12-13 10:57] LABS: INR 1.1; Prothrombin Time 14.5 Seconds (11.1-14.7)
[2022-12-13 10:58] LABS: Partial Thromboplastin Time 28.7 SECONDS (22.3-36.8)
--- NOTE | 2022-12-13 13:31 | PM.IMHP ---
H&P: HPI History of Present Illness Date/Time: 12/13/22 13:31 Chief Complaint: Skin abscess Narrative: This is a 32-year-old female patient who has been a heroin addict for at least 12 years. The patient has been injecting herself with heroin. The patient came in for evaluation of multiple sores on her buttocks secondary to the heroin use. This has been worsening over the last 2 months. She denies any chest pain or shortness of breath. No fever chills. The patient is diaphoretic and she is concerned about going through withdrawals. Her white count 11.7. The patient last used heroin approximately 11 hours ago and is diaphoretic. She is concerned about going through withdrawals. Her hepatitis panel and HIV are all negative. Abdominal pelvis CT was read as diffuse cellulitis and induration of the bilateral gluteal soft tissues with left buttocks abscess is measuring up to 4.1 x 0.9 cm she was started on Levaquin and Flagyl. Surgery has been consulted. However surgery cannot be performed today. It will need to be tomorrow. I collaborated with Dr. Michel concerning withdrawal symptoms and it was suggested that the patient be placed on gabapentin and clonidine. As well as some back stone if her cows score is greater than 10. The patient was given a dose of gabapentin in the emergency room as well as Ativan. The patient is being admitted to observation status on the date of service 12/13/2022. Review of Systems Review of Systems: All systems reviewed & are unremarkable except as noted in HPI and below Constitutional: Constitutional: Reports as per HPI and Reports no additional constitutional complaints Eyes: Eyes: Reports as per HPI and Reports no additional eye complaints ENT: Reports system reviewed and no additional complaints, except as documented and Reports Normal hearing present Cardiovascular: Cardiovascular: Reports no additional cardiovascular complaints Respiratory: Respiratory: Reports no additional respiratory complaints and Reports no additional respiratory complaints Gastrointestinal: Gastrointestinal: Reports as per HPI and Reports no additional gastrointestinal complaints Musculoskeletal: Musculoskeletal: Reports no additional musculoskeletal complaints Integumentary/Breasts: Skin/Breast: Reports system reviewed and no additional complaints, except as docu and Reports as per HPI Neurologic: Reports system reviewed and no additional complaints, except as documented, Reports as per HPI and Reports Normal hearing present Psychiatric: Psychiatric: Reports no additional psychiatric complaints and Reports as per HPI Endocrine: Endocrine: Reports no additional endocrine complaints Hematologic/Lymphatic: Hematologic/Lymphatic: Reports no additional hematologic/lymphatic complaints Allergic/Immunologic: Allergic/Immunologic: Reports no additional allergic/immunologic complaints [facility] Past Medical History Medical History (Updated 12/13/22 @ 15:18 by Leticia Tariq NP) Bipolar 1 disorder Heroin addiction Surgical History Surgical History History of section Family History Family History Unknown Adopted Social History Social History (Updated 12/13/22 @ 15:18 by Leticia Tariq NP) Social History: She had one daughter and she passed at the age of 64 years old. She is single . code status : full code Smoking packs per day: 1 Smoking cigarettes per day: 20.0 Years smoked: 13 Smoking pack-years: 13.00 Smoking status: Heavy tobacco smoker Tobacco type: cigarettes Alcohol intake: current Drinks per week: 1 Substance use: current Substance use type: heroin Last use: 06/13/21 0200 Spiritual care concerns: No Meds Home Medications and Allergies Home Medications Medication Instructions Recorded Confirmed Type No Home Medications 12/13/22 12/13/22
[2022-12-13] MEDS: GABAPENTIN 100 MG CAPSULE PO ×2 (13:57→17:36)
[2022-12-13] MEDS: LORazepam INJ (*CRX) 2 MG/ML VIAL 1 MG IV PUSH (13:57)
[2022-12-13 14:31] LABS: Hepatitis B Surface Antigen Negative (Negative)
[2022-12-13 14:37] LABS: HAV RESULT Negative (Negative); Hepatitis B Core IgM Result Negative (Negative)
[2022-12-13 14:43] LABS: HIV 1/2 Ab P24 Ag Result Negative (Negative)
[2022-12-13 14:48] LABS: Hepatitis C Virus Antibody Negative (Negative)
--- NOTE | 2022-12-13 15:31 | PC.NURSE ---
This patient, Bibi Castillo, was admitted to [facility] Surg Room 333-01. Patient/family oriented to hospital policies and general routines including ID bracelet, bed and alarms, visiting hours, pain management, procedures, bathroom and other care routines, personal items, smoking policy, room service/diet, and visiting hours. Information on how to activate the Rapid Response Team has been discussed. Patient/Family are encouraged to report perceived risks to care and to ask questions if they do not understand what they are told or what they should do.
[2022-12-13] MEDS: HYDROcodone/acetaminophen (*CRX) 5-325 MG TABLET 1 TAB PO (16:05)
--- NOTE | 2022-12-13 16:45 | PC.NURSE ---
Patient noted using vape device in room. Patient educated on use of devices in hospital setting. Vape locked in safe. Patient voiced understanding.
[2022-12-13] MEDS: NICOTINE (*PBKC) 2 MG GUM PO (17:46)
--- NOTE | 2022-12-13 18:21 | PC.NURSE ---
Patient difficult to arouse during assessment Patient laying in supine position with her eyes closed and only arousable with shaking but would fall back asleep almost immediately after. Patient recently had a visitor. After discussing with housekeeping supervisor hotel and floor RN, security notified. Security searched patient's belongings with patient present. Patient given a copy of policy. Patient voiced understanding. No concerns noted during search of belongings.
--- NOTE | 2022-12-13 18:31 | PC.NURSE ---
Patient became very lethargic and hard to arouse. Accompanied by charge nurse APOLLO Renae and 2 security guards all of the patients belongings were sorted through and nothing was found. She did give charge nurseSanthosh RN her tobacco vape as santhosh caught her using it in her room, it is locked in the cabinet.
[2022-12-13] MEDS: cloNIDine HCL 0.1 MG TABLET PO (20:10)
[2022-12-14] VITALS (9 sets, daily range): BP systolic 96–139; BP diastolic 57–84; PULSE 46–72; RESP 15–20; TEMP 36.1–36.7; O2SAT 98–100
[2022-12-14] MEDS: metroNIDAZOLE 500 MG/ISO 100ML 500 MG/100 ML BAG 100 MG IVPB ×4 (02:46→18:02)
[2022-12-14] MEDS: HYDROcodone/acetaminophen (*CRX) 5-325 MG TABLET 1 TAB PO ×3 (05:36→17:53)
[2022-12-14] MEDS: diazePAM (*CRX) 5 MG TABLET PO ×2 (05:37→17:53)
[2022-12-14] MEDS: NICOTINE (*PBKC) 2 MG GUM PO ×3 (08:16→17:53)
[2022-12-14] MEDS: cloNIDine HCL 0.1 MG TABLET PO ×2 (08:16→21:42)
[2022-12-14] MEDS: GABAPENTIN 100 MG CAPSULE PO ×3 (08:16→17:53)
--- NOTE | 2022-12-14 11:11 | PM.IMPN ---
Progress Note: A&P Assessment and Plan (1) Abscess of skin or subcutaneous tissue: Qualifiers: Site of cutaneous abscess: buttock Qualified Code(s): L02.31 - Cutaneous abscess of buttock Code(s): L02.91 - Cutaneous abscess, unspecified Status: Acute Assessment and Plan: Continue Levaquin, Metronidazole, and Vancomycin 12/14 scheduled for I/D and she is medically stable (2) Heroin addiction: Code(s): F11.20 - Opioid dependence, uncomplicated Status: Acute Assessment and Plan: Continue Ativan/Diazepam, Gabapentin, Clonidine. As she has prn Hydrocodone, she will need to detox prior to initiating suboxone She wishes to enter inpatient detox followed by sober living She agrees to see and f/u with psychiatry as well as MAT 12/14 screen for hep b/c, gc/chlamydia, tb, hiv as she is high risk for all (hiv, hep b/c already returned negative) (3) Tobacco dependence: Code(s): F17.200 - Nicotine dependence, unspecified, uncomplicated Status: Acute (4) Hx of tuberculosis: Code(s): Z86.11 - Personal history of tuberculosis Status: Acute Assessment and Plan: Quantiferon Gold pending (5) Abnormal laboratory test: Code(s): R89.9 - Unspecified abnormal finding in specimens from other organs, systems and tissues Status: Acute Assessment and Plan: Hx ABNL RF Repeat RF pending, as well as HCV, HBV screen Subjective Date/time seen: 12/14/22 11:11 Interval history: Continued pain in buttocks at abscess site where she previously and injected heroin. Wanting discontinue heroin years. So far has had a fairly smooth detox with gabapentin Ativan and clonidine. Has history of positive test for rheumatoid arthritis. Has been tests is for hepatitis-B and C in the past and told she did not have it. Currently has no swelling in joints or joint deformity. she did test positive for tuberculosis a few years ago and completed treatment. She has been on methadone in the past but never on Suboxone. Was previously diagnosed with manic depressive disorder and treated with lithium which helped well she took it. Had episodes of being energized for days at a time and not sleeping much and crashing and being very depressed for weeks. This was worsened when her 6-year-old daughter a few years ago. After she left the psychiatric hospital she did not continue taking lithium. Denied chest pain or shortness of breath. Denied GI or issues. Review of Systems Review of Systems: All systems reviewed & are unremarkable except as noted in HPI and below Exam Narrative: Alert oriented no acute distress. Pleasant and cooperative. Neck without JVD chest clear heart regular without murmurs abdomen soft nontender without masses extremities without edema cyanosis or clubbing musculoskeletal with no joint deformity or effusions neurologic cranial nerves intact and symmetric to visual inspection Objective Data Vital Signs Vital Signs: Vital Signs - 24 hr 12/13/22 11:32 12/13/22 13:01 12/13/22 13:58 Temperature Pulse Rate 73 69 68 Respiratory Rate 14 14 14 Blood Pressure 132/88 106/65 114/80 Pulse Oximetry 99 99 100 Oxygen Delivery 12/13/22 17:43 12/13/22 22:00 12/13/22 20:00 Temperature 97.0 F L 97.4 F L Pulse Rate 68 68 Respiratory Rate 14 18 Blood Pressure 115/65 99/60 L Pulse Oximetry 100 100 Oxygen Delivery Room Air 12/14/22 06:00 12/14/22 08:10 Temperature 97.6 F Pulse Rate 72 Respiratory Rate 18 Blood Pressure 104/57 L Pulse Oximetry 100 Oxygen Delivery Room Air Intake/Output Intake/Output: Intake & Output 12/11/22 12/12/22 12/13/22 12/14/22 23:59 23:59 23:59 23:59 Intake Total 350 100 Output Total 1000 Balance 350 -900 Meds/Results Medications: Active Medications Generic Name Dose Route Start Last Admin Trade Name Freq PRN Reason Stop Dose Admin Hydrocod
--- NOTE | 2022-12-14 11:56 | PM.CNGS ---
Assessment and Plan Assessment and plan (1) Abscess of skin or subcutaneous tissue: Qualifiers: Site of cutaneous abscess: buttock Qualified Code(s): L02.31 - Cutaneous abscess of buttock Code(s): L02.91 - Cutaneous abscess, unspecified Status: Acute Assessment and Plan: Patient has acute on chronic bilateral buttock infections with associated multiple small abscesses in larger areas of induration and likely draining sinuses. She has been started on IV antibiotics and will be taken to the operating room later today for incision and drainage of supple small subcutaneous abscesses under bilateral buttocks. History of Present Illness Consult details Consult date: 12/14/22 Narrative: Patient is a 32-year-old female who was admitted through the emergency room complaints of increasing buttock pain redness and drainage from multiple wounds. She has a known IV drug abuser and apparently has been acting heroin and her bilateral buttocks in the subcutaneous tissues. Her last use of heroin was a few hours before she presented to the emergency room. She has had prior history of incision and drainage of abscesses buttocks as well as our arms. In the emergency room [place] [id number] she was afebrile and did not appear to be toxic. CT scan of the pelvis revealed edema thickening bilateral mid buttock skin and subcutaneous tissues. Multiple small abscess cavities were seen bilaterally. The largest be about 4cm in diameter but was only less than 1cm in depth. She was admitted to the hospital IV antibiotics and she will likely need further surgical drainage of these areas of infection. Review of Systems Review of Systems: The remainder of the review of systems to include constitutional, HEENT, cardiovascular, respiratory, GI, , integumentary, musculoskeletal, endocrine, immunologic, hematologic, psychiatric, and neurologic are all negative except for which is mentioned above in the HPI. [facility] Past Medical History Medical History Bipolar 1 disorder Heroin addiction Surgical History Surgical History History of section Family History Family History Unknown Adopted Social History Social History Social History: She had one daughter and she passed at the age of 66 years old. She is single . code status : full code Smoking packs per day: 0.5 Smoking cigarettes per day: 10.0 Years smoked: 25 Smoking pack-years: 12.50 Smoking status: Heavy tobacco smoker Tobacco type: cigarettes Alcohol intake: current Drinks per week: 1 Substance use: current Substance use type: crack/cocaine and heroin Other substance usage details: 08/18 herve kapadiadka Last use: 06/13/21 0200 Lack of Transportation: No Lack of Food: Never True Current Housing: I Have Housing Concerned About Future Housing: No Difficulty Paying Gas/Electric Bills: No Difficulty Paying for Meds: No Currently Unemployed: No Education: High School Diploma/GED Difficulty w/ Childcare or Family Care: No Spiritual care concerns: No Meds Home Medications and Allergies Home Medications Medication Instructions Recorded Confirmed Type No Home Medications 12/13/22 12/13/22 History Allergies Allergy/AdvReac Type Severity Reaction Status Date / Time amoxicillin Allergy Hives Verified 06/14/21 05:38 Vital Signs Vital Signs - 24 hr 12/13/22 13:01 12/13/22 13:58 12/13/22 17:43 Temperature 36.1 C L Pulse Rate 69 68 68 Respiratory Rate 14 14 14 Blood Pressure 106/65 114/80 115/65 Pulse Oximetry 99 100 100 Oxygen Delivery 12/13/22 22:00 12/13/22 20:00 12/14/22 06:00 Temperature 36.3 C L 36.4 C Pulse Rate 68 72 Respiratory Rate 18 18 Blood Pre
--- NOTE | 2022-12-14 13:15 | WPDANESEPPF ---
Anes - Initial Pre Proc Eval Procedure: Operation Date: 12/14/22 13:30 Proposed Procedures p I&D Debride Back Chest Back(Bilateral) - Bahman Melendez MD Date/Time: 12/14/22 13:15 Surgeon: Carlos Eduardo Barbosa MD Pre Op Diagnosis: Bilateral Gluteal Abscesses and Cellulitis Patient Data Age: 32 Gender: F Height: 1.6 m Weight: 49 kg Last Vital Signs Temp 36.4 C 12/14/22 06:00 Pulse 72 12/14/22 06:00 Resp 18 12/14/22 06:00 BP 104/57 L 12/14/22 06:00 Pulse Ox 100 12/14/22 06:00 O2 Del Method Room Air 12/14/22 08:10 Allergies Allergy/AdvReac Type Severity Reaction Status Date / Time amoxicillin Allergy Hives Verified 06/14/21 05:38 Home Medications Medication Instructions Recorded Confirmed Type No Home Medications 12/13/22 12/13/22 History Laboratory Tests 12/13/22 12/13/22 13:39 20:00 Urine Opiates Screen Pending Urine Methadone Screen Pending Ur Barbiturates Screen Pending Ur Phencyclidine Scrn Pending Ur Amphetamine Screen Pending U Benzodiazepines Scrn Pending Urine Cocaine Screen Pending U Cannabinoids Screen Pending Hepatitis A IgM Ab Negative (Negative) Hep Bs Antigen Negative (Negative) Hep B Core IgM Ab Negative (Negative) Hepatitis C Ab Screen Negative (Negative) HIV 1&2 Ab/P24 Ag 4thGn Negative (Negative) Patient hx anesthesia problems: none Family hx anesthesia problems: none Results Review: All pre-operative results and documents have been reviewed as part of the pre-operative evaluation. [facility] Past Medical History Medical History Bipolar 1 disorder Heroin addiction Surgical History Surgical History History of section Family History Family History Unknown Adopted Social History Social History Social History: She had one daughter and she passed at the age of 64 years old. She is single . code status : full code Smoking packs per day: 0.5 Smoking cigarettes per day: 10.0 Years smoked: 25 Smoking pack-years: 12.50 Smoking status: Heavy tobacco smoker Tobacco type: cigarettes Alcohol intake: current Drinks per week: 1 Substance use: current Substance use type: crack/cocaine and heroin Other substance usage details: 08/18 herve mcfarland Last use: 06/13/21 0200 Lack of Transportation: No Lack of Food: Never True Current Housing: I Have Housing Concerned About Future Housing: No Difficulty Paying Gas/Electric Bills: No Difficulty Paying for Meds: No Currently Unemployed: No Education: High School Diploma/GED Difficulty w/ Childcare or Family Care: No Spiritual care concerns: No Anes - Eval Final PreProcedure Day of Procedure 12/14/22 13:15 Patient weight: normal Heart: regular rate and rhythm Lungs: clear to auscultation and normal air movement Airway: Mallampati scale class II Neurological: alert and oriented Last oral intake: >/= 8 hours ASA classification: III Emergent: yes Anesthetic plan: proceed Anesthesia type and monitoring: general GIVS and standard monitoring Results Review: All pre-operative results and documents have been reviewed as part of the pre-operative evaluation. Informed Consent: The patient's anesthetic plan and its attendant risks and benefits were discussed with the patient/family/POA. Questions were solicited and answers provided to the satisfaction of the patient/family/POA.
[2022-12-14] MEDS: LACTATED RINGERS 1,000 ML 30 ML IV CONT (14:00)
--- NOTE | 2022-12-14 14:00 | WPDHPUPDATE1 ---
History and Physical Update Update Date/Time: 12/14/22 14:00 History and Physical has been reviewed, including an updated exam of the patient. There are NO changes in the patient's condition. Risks, benefits, and alternatives have been discussed and questions answered. Patient agrees to proceed with procedure.
--- NOTE | 2022-12-14 14:57 | W.PM.PROC2 ---
Procedure Note - Detailed Date of Procedure 12/14/22 Pre-op Diagnosis Bilateral Gluteal Abscesses and Cellulitis Post-op Diagnosis Same Procedure Performed Simple incision and drainage of multiple bilateral buttock subcutaneous abscesses Surgeon Bahman Melendez MD Director Pharmacy Services [facility] General Indications Patient is a 32-year-old female who was admitted to the hospital with cellulitis of the bilateral buttocks and multiple areas of draining abscess due to subcutaneous injections of heroin. She has had chronic wounds in these areas for several months. Findings Multiple acute and chronic abscesses with draining sinus tracts in the bilateral mid buttock regions over an area measuring approximately [id number] on each buttock None of the abscess extended into the muscle. Description of Procedure After informed consent was obtained patient was brought to the operating where she was placed under general endotracheal anesthesia and turned on the prone position on the operating table. Care was taken to ensure all the pressure points well padded. Bilateral buttock regions were then prepped draped usual sterile fashion. Time-out was then performed correctly identifying the patient as well as procedure to be performed. She was already on scheduled IV antibiotics. I started a probe all of the chronic infected areas and most of them did not have any associated draining sinus tracts. About 3 on each buttock did have an associated short sinus tract which was opened and marsupialized with electrocautery. Within many of these tracts thrombosed small vessels were noted from injection of heroin. Once I had all the abscesses drained in the sinus tracts opened up I decided the wounds were not deep enough to pack. Achieved hemostasis utilized for cautery and then irrigated out all the wounds with sterile saline solution. We then proceeded to discover the wounds on the bilateral buttocks with dry 4x4 gauze and ABD pads. Patient tolerated procedure well no complications. All sponge needles instrument counts correct at end of procedure. Estimated blood loss procedure was 10cc. Patient was awakened extubated taken recovery stable satisfactory condition. Implants None Estimated Blood Loss 10 Urine Output 1,000 Drains No Packing No Pathology None sent Complications No immediate complications Condition Stable Disposition PACU [facility] Billing Surgery - Charge Forward: Surgery Billing
--- NOTE | 2022-12-14 15:50 | SUR.PHASEI ---
1550- Dr. Acevedo at bedside and made aware patient bradycardic in 40's to 50's. Patient has been awake intermittently answering questions and denying symptoms. Patient's BP stable and per Dr. Acevedo no additional orders at this time.
[2022-12-15] MEDS: metroNIDAZOLE 500 MG/ISO 100ML 500 MG/100 ML BAG 100 MG IVPB ×4 (00:22→23:32)
[2022-12-15] MEDS: diazePAM (*CRX) 5 MG TABLET PO (03:55)
[2022-12-15] MEDS: HYDROcodone/acetaminophen (*CRX) 5-325 MG TABLET 1 TAB PO ×3 (03:55→20:57)
[2022-12-15 06:00] VITALS: BP 99/60; PULSE 46; RESP 14; TEMP 35.7; O2SAT 97
[2022-12-15 07:57] LABS: Hematocrit 37.2 % (37.0-47.0); Hemoglobin 11.5 g/dL (12.0-15.0); Mean Corpuscular HGB Conc 30.9 g/dl (32-36); Mean Corpuscular Hemoglobin 29.4 pg (26-34); Mean Corpuscular Volume 95.1 fl (80-100); Mean Platelet Volume 9.9 fl (7.4-10.4); Platelet Count Result 249 k/mm3 (150-375); Red Blood Count 3.91 M/mm3 (4.2-5.4); Red Cell Distribution Width 13.8 % (11.5-14.5); White Blood Count 11.1 K/mm3 (4.5-10.0)
[2022-12-15] MEDS: ALPRAZolam (*CRX) 0.5 MG TABLET (08:08)
[2022-12-15] MEDS: GABAPENTIN 100 MG CAPSULE PO ×2 (08:08→17:24)
[2022-12-15 08:10] LABS: Alanine Aminotransferase 13 U/L (6-35); Albumin Level 3.4 g/dL (3.5-5.1); Alkaline Phosphatase 46 U/L (38-126); Anion Gap 3 mmol/L (8-16); Aspartate Amino Transferase 18 U/L (14-36); Bilirubin,Total 0.2 mg/dL (0.2-1.3); Blood Urea Nitrogen 8 mg/dL (7-17); Calcium 8.5 mg/dL (8.4-10.2); Carbon Dioxide 31 mmol/L (22-30); Chloride 106 mmol/L (98-107); Estimated CRCL calculation 124 ml/min; Estimated Glomerular Filt Rate > 60; Glucose 96 mg/dL (65-110); Potassium 3.6 mmol/L (3.4-5.0); Sodium 140 mmol/L (137-145)
[2022-12-15 08:11] LABS: Rheumatoid Factor < 12.0 IU/ML (<12)
[2022-12-15] MEDS: LACTATED RINGERS 1,000 ML 75 ML (08:11)
[2022-12-15] MEDS: HALOPERIDOL LACTATE 5 MG/ML VIAL 4 MG IM (09:01)
--- NOTE | 2022-12-15 11:34 | PM.IMPN ---
Progress Note: A&P Assessment and Plan (1) Abscess of skin or subcutaneous tissue: Qualifiers: Site of cutaneous abscess: buttock Qualified Code(s): L02.31 - Cutaneous abscess of buttock Code(s): L02.91 - Cutaneous abscess, unspecified Status: Acute Assessment and Plan: Continue Levaquin, Metronidazole, and Vancomycin s/p I/D (2) Heroin addiction: Code(s): F11.20 - Opioid dependence, uncomplicated Status: Acute Assessment and Plan: Continue Ativan/Diazepam, Gabapentin, Clonidine. As she has prn Hydrocodone, she will need to detox prior to initiating suboxone She wishes to enter inpatient detox followed by sober living She agrees to see and f/u with psychiatry as well as MAT 12/14 screen for hep b/c, gc/chlamydia, tb, hiv as she is high risk for all (hiv, hep b/c already returned negative) Patient going into withdrawal. Will start on Haldol p.r.n. (3) Tobacco dependence: Code(s): F17.200 - Nicotine dependence, unspecified, uncomplicated Status: Acute (4) Hx of tuberculosis: Code(s): Z86.11 - Personal history of tuberculosis Status: Acute Assessment and Plan: Quantiferon Gold pending Subjective Date/time seen: 12/15/22 11:34 Interval history: As per the nursing staff patient was beginning to withdrawal this morning with shaking and palpitations and tachycardia. At the time of my examination patient was resting in bed comfortably Review of Systems Review of Systems: All systems reviewed & are unremarkable except as noted in HPI and below Exam Narrative: Alert oriented no acute distress. Pleasant and cooperative. Neck without JVD chest clear heart regular without murmurs abdomen soft nontender without masses extremities without edema cyanosis or clubbing musculoskeletal with no joint deformity or effusions neurologic cranial nerves intact and symmetric to visual inspection Objective Data Vital Signs Vital Signs: Vital Signs - 24 hr 12/14/22 15:08 12/14/22 15:20 12/14/22 15:25 Temperature 97.4 F L Pulse Rate 67 58 L 55 L Respiratory Rate 18 16 16 Blood Pressure 116/71 139/82 123/84 Pulse Oximetry 100 100 100 Oxygen Delivery Simple Face Mask Simple Face Mask Room Air Oxygen Flow Rate 8 8 12/14/22 15:40 12/14/22 15:50 12/14/22 16:05 Temperature 98.0 F Pulse Rate 57 L 48 L 46 L Respiratory Rate 16 15 16 Blood Pressure 127/82 125/77 108/68 Pulse Oximetry 100 100 100 Oxygen Delivery Room Air Room Air Simple Face Mask Oxygen Flow Rate 8 12/14/22 16:26 12/14/22 22:00 12/14/22 20:30 Temperature 98.1 F 96.9 F L Pulse Rate 65 53 L Respiratory Rate 20 16 Blood Pressure 109/66 96/62 L Pulse Oximetry 100 98 Oxygen Delivery Room Air Oxygen Flow Rate 12/15/22 06:00 Temperature 96.2 F L Pulse Rate 46 L Respiratory Rate 14 Blood Pressure 99/60 L Pulse Oximetry 97 Oxygen Delivery Oxygen Flow Rate Intake/Output Intake/Output: Intake & Output 12/12/22 12/13/22 12/14/22 12/15/22 23:59 23:59 23:59 23:59 Intake Total 350 / 350 1590 / 1590 530 / 530 Output Total 1999 / 1999 1000 / 1000 Balance 350 / 350 -410 / -410 -470 / -470 Meds/Results Medications: Active Medications Generic Name Dose Route Start Last Admin Trade Name Freq PRN Reason Stop Dose Admin Hydrocodone Bitart/Acetaminophen 1 tab 12/13/22 15:21 12/15/22 08:12 Hydrocodone/Acetaminophen (*Crx) 5-325 Mg Tablet PO 1 tab Q4H PRN Administration Pain Rated 4-6 Clonidine HCl 0.1 mg 12/13/22 21:00 12/15/22 08:29 Clonidine Hcl 0.1 Mg Tablet PO Not Given Q12HR CHELO Diazepam 5 mg 12/13/22 13:20 12/15/22 03:55 Diazepam (*Crx) 5 Mg Tablet PO 5 mg BID PRN Administration Anxiety Gabapentin 100 mg 12/13/22 17:00 12/15/22 08:08 Gabapentin 100 Mg Capsule PO 100 mg TID CHELO Administration Haloperidol Lactate 4 mg 12/15/22 08:00 12/15/22 09:01 Haloperidol L
[2022-12-15 12:00] VITALS: PULSE 57
[2022-12-15] MEDS: LORazepam INJ (*CRX) 2 MG/ML VIAL 1 MG IV PUSH ×2 (13:55→22:10)
[2022-12-15 15:54] LABS: Vancomycin Trough 7.1 ug/mL (10.0-20.0)
[2022-12-15 16:00] VITALS: PULSE 67
--- NOTE | 2022-12-15 16:08 | PM.PNGS ---
Progress Note: A&P Assessment and Plan (1) Abscess of skin or subcutaneous tissue: Qualifiers: Site of cutaneous abscess: buttock Qualified Code(s): L02.31 - Cutaneous abscess of buttock Code(s): L02.91 - Cutaneous abscess, unspecified Status: Acute Assessment and Plan: S/p I&D of multiple buttock abscesses yesterday in the OR. Preliminary wound culture growing staphylococcus aureus. Wounds appear stable today with no purulent drainage noted. Will continue with ABD dressing changes, no packing needed. Likely could narrow abx to IV Vancomycin, management per Hospitalist. Plan I have discussed the patient's case and plan of care with Dr. Melendez. Subjective Subjective Date/Time Seen: 12/15/22 16:08 Patient reports: tolerating a regular diet and afebrile Interval history: Chart reviewed. Patient seen with nursing at the bedside. No acute changes overnight. Reports still having some pain in her buttocks. S/p I&D of multiple buttock abscesses in the OR yesterday by Dr. Melendez. Review of Systems Review of Systems: All systems reviewed & are unremarkable except as noted in HPI and below Exam Const: General: no acute distress Orientation/consciousness: patient oriented x3 Skin: Other: Bilateral buttock dressing removed with moderate amount of serosanguineous drainage on dressing. There are multiple open wounds with areas of tunneling on bilateral buttocks with localized erythema around wounds. No purulent drainage or significant areas of fluctuation. Objective Data Vital Signs Vital Signs: Vital Signs - 24 hr 12/14/22 16:26 12/14/22 22:00 12/14/22 20:30 Temperature 98.1 F 96.9 F L Pulse Rate 65 53 L Respiratory Rate 20 16 Blood Pressure 109/66 96/62 L Pulse Oximetry 100 98 Oxygen Delivery Room Air 12/15/22 06:00 Temperature 96.2 F L Pulse Rate 46 L Respiratory Rate 14 Blood Pressure 99/60 L Pulse Oximetry 97 Oxygen Delivery Intake/Output Intake/Output: Intake & Output 12/12/22 12/13/22 12/14/22 12/15/22 23:59 23:59 23:59 23:59 Intake Total 350 1590 902 Output Total 2000 1600 Balance 117 -613 -455 Meds/Results Medications: Active Medications Generic Name Dose Route Start Last Admin Trade Name Freq PRN Reason Stop Dose Admin Hydrocodone Bitart/Acetaminophen 1 tab 12/13/22 15:21 12/15/22 08:12 Hydrocodone/Acetaminophen (*Crx) 5-325 Mg Tablet PO 1 tab Q4H PRN Administration Pain Rated 4-6 Clonidine HCl 0.1 mg 12/13/22 21:00 12/15/22 08:29 Clonidine Hcl 0.1 Mg Tablet PO Not Given Q12HR CHELO Gabapentin 100 mg 12/13/22 17:00 12/15/22 16:02 Gabapentin 100 Mg Capsule PO Not Given TID CHELO Haloperidol Lactate 4 mg 12/15/22 08:00 12/15/22 09:01 Haloperidol Lactate 5 Mg/Ml Vial IM 4 mg Q6HR PRN Administration drug withdrawal Levofloxacin/Dextrose 750 mg in 150 mls @ 100 mls/hr 12/14/22 09:00 12/15/22 09:38 Levaquin 750 Mg/D5w 150 Ml IVPB Infused Q24H CHELO Infusion Metronidazole 500 mg in 100 mls @ 100 mls/hr 12/13/22 17:00 12/15/22 16:01 Flagyl 500 Mg/Iso Soln 100 Ml IVPB Not Given Q6HR CHELO Lactated Ringer's 1,000 mls @ 100 mls/hr 12/15/22 08:00 12/15/22 08:31 Lr - Lactated Ringers Iv IV CONT 12/15/22 17:59 Not Given .Q10H CHELO Vancomycin HCl 1,500 mg in 500 mls @ 250 mls/hr 12/15/22 16:00 Vancomycin 1,500 Mg/D5w 500 Ml IVPB Q12H CHELO Lorazepam 1 mg 12/15/22 14:08 Lorazepam Inj (*Crx) 2 Mg/Ml Vial IV PUSH Q8H PRN Anxiety Nicotine Polacrilex 2 mg 12/13/22 17:11 12/14/22 17:53 Nicotine (*Pbkc) 2 Mg Gum PO 2 mg PRN PRN Administration Nicotine Cravings Radiology Results: ITS Impressions Abdomen/Pelvis CT 12/13/22 12:02 IMPRESSION: 1. Diffuse cellulitis and induration of the bilateral gluteal soft tissues with left buttock abscesses measuring up to 4.1 x 0.9 cm. Labs Labs: Laboratory Results - last 2
[2022-12-15 17:41] VITALS: BP 118/72; PULSE 73; RESP 16; TEMP 36.7; O2SAT 100
[2022-12-15 20:00] VITALS: PULSE 56
[2022-12-15] MEDS: cloNIDine HCL 0.1 MG TABLET PO (20:53)
[2022-12-15 21:52] VITALS: BP 133/98; PULSE 97; RESP 18; TEMP 36.4; O2SAT 100
[2022-12-16] VITALS: PULSE 45
[2022-12-16] MEDS: HYDROcodone/acetaminophen (*CRX) 5-325 MG TABLET 1 TAB PO (03:39)
[2022-12-16 04:00] VITALS: PULSE 43
[2022-12-16 05:42] VITALS: BP 148/99; PULSE 66; RESP 18; TEMP 36.4; O2SAT 100
[2022-12-16] MEDS: metroNIDAZOLE 500 MG/ISO 100ML 500 MG/100 ML BAG 100 MG IVPB (06:15)
[2022-12-16] MEDS: HALOPERIDOL LACTATE 5 MG/ML VIAL 4 MG IM (07:20)
--- NOTE | 2022-12-16 08:10 | PM.DS ---
DS: Admitting Diagnosis Discharge Date 12/16/22 Admitting Diagnosis gluteal abscess drug withdrawal DS: Discharge Diagnosis Discharge Diagnosis (1) Sepsis: Code(s): A41.9 - Sepsis, unspecified organism Status: Acute (2) Abscess of skin or subcutaneous tissue: Qualifiers: Site of cutaneous abscess: buttock Qualified Code(s): L02.31 - Cutaneous abscess of buttock Code(s): L02.91 - Cutaneous abscess, unspecified Status: Acute (3) Active intravenous drug use: Code(s): F19.90 - Other psychoactive substance use, unspecified, uncomplicated Status: Acute DS: Summary Hospital Course Hospital Course: patient was admitted with b/l gluteal abscesses. she was started on iv levaquin, vanco and flagyl. surgery was consulted. patient underwent I&D. wound cx grew MRSA. patient was also going thru heroin withdrawal and was given iv benzodiazepines. patient left AMA. Time Spent with Patient Time attestation: Total time spent providing and/or coordinating discharge services: DS: Data Data Completed and Pending Labs on day of discharge: Labs from last 24 hours 12/15/22 12/15/22 12/15/22 15:01 08:17 07:43 Sodium 140 Potassium 3.6 Chloride 106 Carbon Dioxide 31 H Anion Gap 3 L BUN 8 D Creatinine 0.40 L Estim Creat Clear Calc 124 Estimated GFR > 60 Glucose 96 Calcium 8.5 Total Bilirubin 0.2 AST 18 ALT 13 Alkaline Phosphatase 46 Total Protein 7.0 Albumin 3.4 L Vancomycin Trough 7.1 L Rheumatoid Factor < 12.0 C.trachomatis RNA (TMA) Pending N.gonorrhoeae RNA (TMA) Pending Preliminary micro results at discharge 12/13/22 10:26 Blood Culture - Preliminary Blood 12/13/22 10:38 Blood Culture - Preliminary Blood Discharge Plan Discharge Consulting providers: Bahman Melendez Discharging Clinician: Lion Wiley Anticipated Discharge Date/Time: 12/16/22 08:09 Patient Disposition: Left Against Medical Advice Activity: no preference Diet: regular Patient Instructions: How to Stop Smoking (ED) Follow-up/Referrals: Courtney,Emily Mehta APRN [Primary Care Provider] - Discharge Medications: New sulfamethoxazole-trimethoprim [Bactrim DS] 800-160 mg tablet 1 tablet PO Q12H Qty: 20 0RF No Action No Home Medications Date of admission: 12/14/22 15:20 Primary Care Provider: Courtney,Emily Mehta Admitting Provider: Paolo Barbosa Attending physician on admission: Lion Wiley Condition: Stable
--- NOTE | 2022-12-16 08:24 | PC.NURSE ---
Received report from night staff, patient has been stating she needs to leave, patient extremely agitated at beginning of shift. Patient had just received Ativan and we gave patient Haldol IM. Patient educated on MRSA to wounds and need for IV antibiotics and dressing changes. Patient stating she's unable to stay longer, clarified with patient doctor is not discharging her and she would be leaving AMA. Notified provider and consulting of patient leaving AMA. Hospitalist stated he would call in PO antibiotics to patients pharmacy, this RN updated pharmacy in [facility] and clarified verbally. Educated patient and caregiver on wound care, signs and symptoms, and importance on continuing on PO antibiotics. Encouraged patient to follow up with primary care provider, caregiver voiced understanding. Patients belongings packed up and vape returned from the safe. Patient's wheeled out to caregivers car and assisted into caregivers car.
[2022-12-17 11:59] LABS: NIL 0.02 IU/mL; Quantiferon TB Plus, 1T NEGATIVE (NEGATIVE); TB1-NIL 0.25 IU/mL; TB2-NIL 0.23 IU/mL
== END 2022-12-16 08:10 | disposition left against medical advice (07) | DRG 364 ==
LOC: ANHED 08:34 → ANH3MEDSUR 13:48
PROVIDERS: Internal Medicine; Nurse Practitioner; Surgery; Admitting Provider Internal Medicine; Emergency Provider Emergency Medicine; PCP Nurse Practitioner Family; Visit Provider Hospitalist
PROC: 0J990ZZ Drainage of Buttock Subcutaneous Tissue and Fascia, Open Approach (ICD-10-PCS; principal; 2022-12-14 13:30)
DX: L02.31 Cutaneous abscess of buttock (principal); A41.9 Sepsis, unspecified organism; R64 Cachexia; L03.317 Cellulitis of buttock; F11.23 Opioid dependence with withdrawal; B95.62 Methicillin resistant Staphylococcus aureus infection as the cause of diseases classified elsewhere; F31.9 Bipolar disorder, unspecified; F17.210 Nicotine dependence, cigarettes, uncomplicated; Z68.1 Body mass index [BMI] 19.9 or less, adult; Z86.11 Personal history of tuberculosis
CPT/HCPCS: 36415; 74177; 80053; 80074; 80202; 85025; 85027; 85610; 85730; 86430; 86480; 86703; 87040; 87070; 87147; 87181; 87186; 87205; 87491; 87591; 96361; 96365; 96366; 96367; 96375; 99285; A9270; G0378; G0379; G0432; J1100; J1630; J1956; J2060; J2250; J2405; J2704; J3010; J3370; J7120; Q9967

== ENCOUNTER 2023-06-13 17:28 | Inpatient (IN) | payer OTHER, SELFPAY ==
--- NOTE | ~2023-06-13 | XR_ITS ---
EXAMINATION: XR chest 1V portable Exam Date/Time: 06/13/2023 22:10 CDT HISTORY: sepsis Comparison: None. RESULT: Lines, tubes, and devices: None. Lungs and pleura: Clear. Cardiomediastinal silhouette: Normal. Other: No acute osseous or upper abdominal finding. IMPRESSION: No acute cardiopulmonary process. Reviewed, dictated and finalized at location K.
--- NOTE | ~2023-06-13 | CT_ITS ---
EXAMINATION: CT abdomen pelvis w con DATE: 06/13/2023 22:31 INDICATION: large sacral wounds TECHNIQUE: Computed tomography (CT) of the abdomen and pelvis was performed with 100 mL Omnipaque-350 intravenous contrast. Automated exposure control and iterative reconstruction technique were employe d. The dose-length product was 190.09 mGy-cm. COMPARISON: 12/13/2022. FINDINGS: Lower thorax: Unremarkable Liver: Normal. Biliary/Gallbladder: Gallbladder is normal. Mild intrahepatic and extra hepatic bile duct dilation. N o obstructing stone or mass. Pancreas: Pancreas disease. Mild pancreatic duct dilation, slightly increased. Spleen: Normal. Adrenals:No mass. Kidneys: No suspicious mass, obstructing stone, or hydronephrosis. GI tract: No small or large bowel dilation. Normal appendix Mesentery/Peritoneum: Mild mesenteric edema. No significant free fluid. No free air. Retroperitoneum: No mass. Pelvis: Pelvic organs are within normal limits. Soft Tissues: Mild diffuse body wall edema. Diffuse dermal thickening involving the right and left bu ttocks with subcutaneous stranding and soft tissue defects that do not extend to bone. No evidence of osteomyelitis. Bones: Bilateral pars defects at L5. Grade 2 L5-S1 anterolisthesis. IMPRESSION: Mild intra and extrahepatic bile duct dilation and dilation of the pancreatic duct, all increased sli ghtly since the prior study. No obstructing stone or mass. Correlate with biliary labs and pancreatic labs. Consider MRCP. Mild mesenteric edema. Mild body wall edema. Bilateral gluteal ulcers and cellulitis. No evidence of osteomyelitis. Reviewed, dictated and finalized at location K. IMPRESSION: Mild intra and extrahepatic bile duct dilation and dilation of the pancreatic d uct, all increased slightly since the prior study. No obstructing stone or mass . Correlate with biliary labs and pancreatic labs. Consider MRCP. Mild mesenteric edema. Mild body wall edema. Bilateral gluteal ulcers and cellulitis. No evidence of osteomyelitis.
[2023-06-13 17:31] VITALS: BP 99/67; PULSE 61; RESP 16; TEMP 36.4; O2SAT 98
--- NOTE | 2023-06-13 20:11 | ED.SKABFB ---
HPI - Skin/Abscess/Foreign Bdy General Chief complaint: Skin/Abscess/Foreign Body Stated complaint: wound Time Seen by Provider: 06/13/23 19:25 Source: patient Mode of arrival: ambulatory Limitations: no limitations History of Present Illness HPI narrative: 33-year-old female with history of alcohol use disorder drinking upon a day, daily heroin injection use presenting with multiple large wounds on her buttocks. She injects in her buttocks has been doing so for over a year. There has had surgery previously about a year ago for similar presentation but says they never really healed orally she started injecting it again. No fevers. Last drink was earlier today. Last used heroin about 2 hours ago. All other symptoms and complaints are negative as per ROS. Related Data Home Medications Medication Instructions Recorded Confirmed No Home Medications 12/13/22 12/13/22 Allergies Allergy/AdvReac Type Severity Reaction Status Date / Time amoxicillin Allergy Hives Verified 06/14/21 05:38 Review of Systems Review of Systems: All systems reviewed & are unremarkable except as noted in HPI and below PMFSH Past Medical History Medical History Bipolar 1 disorder Heroin addiction Surgical History Surgical History History of section Family History Family History Unknown Adopted Social History Social History Social History: She had one daughter and she passed at the age of 66 years old. She is single . code status : full code Smoking packs per day: 0.5 Smoking cigarettes per day: 10.0 Years smoked: 25 Smoking pack-years: 12.50 Smoking status: Heavy tobacco smoker Tobacco type: cigarettes Alcohol intake: current Drinks per week: 1 Substance use: current Substance use type: crack/cocaine and heroin Other substance usage details: 08/18 pint vodka Last use: 06/13/21 0200 Lack of Transportation: No Lack of Food: Never True Current Housing: I Have Housing Concerned About Future Housing: No Difficulty Paying Gas/Electric Bills: No Difficulty Paying for Meds: No Currently Unemployed: No Education: High School Diploma/GED Difficulty w/ Childcare or Family Care: No Spiritual care concerns: No Exam Narrative: Constitutional: Generally well appearing, no acute distress . Drowsy, sleeping but easily arousable. Appears intoxicated likely with opiates Head: Atraumatic, no deformities. Eyes: Pupils equal, round, and reactive to light. Neck: Supple, no tracheal deviation, no JVD. ENMT: Mucous membranes moist Cardiovascular: S1, S2 auscultated. No murmurs, rubs, or gallops. No S3/S4. Normal Distal pulses. No peripheral edema. Respiratory: Lung sounds equal. No wheezes, rales, or rhonchi. Gastrointestinal: Abdomen was soft and non-tender. Non-distended. No rebound or guarding. Genitourinary: Deferred Musculoskeletal: Normal muscle tone and bulk. No obvious deformities or tenderness over extremities. Skin: two large sacral decubitus wound stage III with a necrotic Center, approximately 15 x 15 cm each with purulent discharge and some surrounding erythema. Does not involve the rectum. Neurological: Strength 5/5 in extremities. Cranial nerves I-XII grossly intact. Distal sensation intact. Mental Status: Awake, alert and oriented x3. Follows commands Course Vital Signs Vital signs: Vital Signs Temperature 36.4 C 06/13/23 17:31 Pulse Rate 61 06/13/23 17:31 Respiratory Rate 16 06/13/23 17:31 Blood Pressure 99/67 L 06/13/23 17:31 Pulse Oximetry 98 06/13/23 17:31 Temperature 36.4 C 06/13/23 17:31 Pulse Rate 46 L 06/13/23 21:42 Respiratory Rate 14 06/13/23 21:42 Blood Pressure 83/57 L 06/13/23 21:42 Pulse Oxime
[2023-06-13 21:00] VITALS: BP 91/65; PULSE 50; PULSE 53; RESP 14; RESP 16; O2SAT 100; O2SAT 96
[2023-06-13 21:27] LABS: Basophils Percent Auto 0.4 % (0.2-1.2); Eosinophils Absolute Auto 0.2 K/mm3 (0-0.3); Eosinophils Percent Auto 2.7 % (0-4.4); Hematocrit 38.3 % (37.0-47.0); Immature Granulocyte Absolute 0.02 K/mm3 (0.00-0.031); Immature Granulocyte Percent A 0.3 % (0-0.5); Lymphocytes Absolute Auto 1.84 K/mm3 (0.9-3.2); Lymphocytes Percent Auto 25.3 % (18.3-44.2); Mean Corpuscular HGB Conc 31.3 g/dl (32-36); Mean Corpuscular Hemoglobin 28.8 pg (26-34); Mean Corpuscular Volume 92.1 fl (80-100); Mean Platelet Volume 9.6 fl (7.4-10.4); Monocytes Absolute Auto 0.7 K/mm3 (0.1-0.6); Monocytes Percent Auto 9.1 % (2.6-8.5); Neutrophils Absolute Auto 4.5 K/mm3 (1.3-6.7); Neutrophils Percent Auto 62.2 % (45.5-73.1); Platelet Count Result 314 k/mm3 (150-375); Red Blood Count 4.16 M/mm3 (4.2-5.4); Red Cell Distribution Width 12.3 % (11.5-14.5); White Blood Count 7.3 K/mm3 (4.5-10.0)
[2023-06-13 21:30] LABS: Pregnancy On Board Control Positive; Urine Pregnancy Test Negative
[2023-06-13 21:37] LABS: Ethanol < 10 mg/dL (<10); Lactic Acid Reflex 0.8 mmol/L (0.7-2.0)
[2023-06-13 21:39] LABS: Alanine Aminotransferase 9 U/L (6-35); Albumin Level 4.1 g/dL (3.5-5.1); Alkaline Phosphatase 70 U/L (38-126); Anion Gap 6 mmol/L (8-16); Aspartate Amino Transferase 24 U/L (14-36); Bilirubin,Total 0.4 mg/dL (0.2-1.3); Blood Urea Nitrogen 14 mg/dL (7-17); CRP 2.6 mg/dL (<1.0); Calcium 9.3 mg/dL (8.4-10.2); Carbon Dioxide 33 mmol/L (22-30); Chloride 98 mmol/L (98-107); Estimated CRCL calculation 91 ml/min; Estimated Glomerular Filt Rate > 60; Glucose 105 mg/dL (65-110); Potassium 3.6 mmol/L (3.4-5.0); Sodium 137 mmol/L (137-145)
[2023-06-13 21:40] LABS: INR 1.1; Prothrombin Time 14.5 Seconds (11.1-14.7)
[2023-06-13] MEDS: VANCOMYCIN 1,250 MG/NS 250 ML 1,250 MG/250 ML BAG 166.67 MG IVPB (21:40)
[2023-06-13 21:41] LABS: Partial Thromboplastin Time 34.4 SECONDS (22.3-36.8)
[2023-06-13] MEDS: SODIUM CHLORIDE 0.9% IV 1,600 ML/1,000 ML BAG 999 ML IV CONT ×2 (21:41→22:02)
[2023-06-13 21:42] VITALS: BP 83/57; PULSE 46; RESP 14; O2SAT 100
[2023-06-13 21:42] LABS: Appearance Urine Turbid (Clear); Bacteria Urine None Seen /hpf; Bilirubin Urine Negative (Negative); Blood Urine Negative (Negative); Color Urine Dark Yellow (Yellow); Glucose Urine UA Negative (Negative); Ketones Urine Negative (Negative); Leukocyte Esterase Ur Negative LEU/UL (Negative); Need Manual Microscopic Reviewed; Nitrate Urine Negative (Negative); Non Pathogenic Casts 0-2; Protein Urine Negative (Negative); RBC Urine 0-2 /hpf (0-2); Specific Grav Ur 1.023 (1.001-1.035); Squamous Epithelial Cell Urine Few /hpf (Few); WBC Urine 0-5 /hpf; pH Urine 5.5 (5.0-9.0)
[2023-06-13 21:43] LABS: Add Urine Microscopic? YES
[2023-06-13 22:00] VITALS: BP 88/63; PULSE 48; RESP 14; O2SAT 100
[2023-06-13 22:30] VITALS: BP 105/81; PULSE 61; RESP 14; O2SAT 98
[2023-06-13 23:30] VITALS: BP 121/87; PULSE 68; RESP 16; O2SAT 100
[2023-06-13 23:37] LABS: Lipase 23 U/L (23-300)
[2023-06-14] VITALS (14 sets, daily range): BP systolic 89–141; BP diastolic 41–74; PULSE 49–68; RESP 13–20; TEMP 35.8–36.5; O2SAT 97–100; BMI 18.2; BMI 18.8
--- NOTE | 2023-06-14 00:25 | PM.IMHP ---
H&P: HPI History of Present Illness Date/Time: 06/14/23 00:25 Chief Complaint: Infected buttock wounds Narrative: 33-year-old female with a past medical history of alcohol abuse, heroin abuse and multiple abscesses due to injection drug use who presented to the ER for worsening wounds on her buttocks that her draining. The patient reports for the last several years she has had multiple episodes of infected wounds due to injecting heroin. She usually injects her hips and buttocks. She started injecting there instead of in the other is could she did not want people to see the areas of scarring. It she has been staying with a friend who does not use drugs and has been concerned about her condition. At his prompting she decided come to the ER for evaluation. She reports that she has been having chills and shaking for a couple of days. Her wounds have become purulence and are draining. She denies any known or measured fevers. She is afebrile on presentation. She is still using heroin in fact was found asleep sitting at the side the hospital. She was initially unable to stay awake a but as the ER visit progressed the patient was more alert and appropriate. She denies any current nausea or vomiting. She reports that she has chronic low appetite. She does not recall when she had her last bowel movement. She reports that she only eats small amounts of food. She also drinks a pt of hard liquor a day. Her last alcoholic beverage was at noon on the . Her alcohol level in the ER was less than 10. Urine drug screen was not performed in the ER and patient became agitated when security circular bags even though she stated she had no drugs. Patient states that she uses heroin twice a day. She has been using heroin heavily for about 12 years. She always had some issues with dependence issues but her drug issues became worse when her mother in a killed her 6-year-old child and then committed suicide. She reports that this time year is always worse for her and that is why she has been hospitalized around this time a year each year. She denies any current attempts to hurt herself. She denies any changes in urinary frequency. She denies any cough congestion or shortness of breath. On arrival to the ER the patient was hypotensive. Blood pressures did improve after about 35 mL/kilos fluid bolus. Patient initially had agreed to be admitted to the hospital. After staff that is searched her belongings she was ready to leave against medical advice. She reported that she felt insulted that they searched her belongings at the time of admission. She reports that she had tried to get the surgery belongings when she initially came into the ER but they had refused. After some discussion the patient has agreed to stay in the hospital and be treated for her infection. Review of Systems Review of Systems: 12 systems were reviewed with pertinent positives and negatives per HPI. Except as documented in the HPI, all other systems were reviewed and are negative. FOR[facility]LY [facility] Past Medical History Medical History (Updated 06/14/23 @ 04:36 by Susan Denise DO) Bipolar 1 disorder Heroin addiction Surgical History Surgical History (Updated 06/14/23 @ 04:36 by Susan Denise DO) History of section History of incision and drainage Infected abscesses in debridement of ulcers across buttocks and hips 12/14/2022 Family History Family History Unknown Adopted Social History Social History (Updated 06/14/23 @ 04:40 by Susan Denise DO) Social History: She had one daughter and she passed at the age of 64 years old. She reports that her child was murdered by child's paternal grandmother. She has been using drugs heavily since that time approximately 12 years. She reports that she has been using heroin heavily usually twice a day since then. She had inpatient treatment for heroin abuse several y
[2023-06-14] MEDS: levoFLOXacin 500 MG/D5W 100 ML 500 MG/100 ML BAG 100 MG IVPB (01:22)
[2023-06-14] MEDS: SODIUM CHLORIDE 0.9% IV 1,000 ML 999 ML IV CONT (01:22)
[2023-06-14] MEDS: THIAMINE 500 MG/NS 100 ML 500 MG/100 ML BAG 200 MG IVPB (02:42)
[2023-06-14 02:47] LABS: Glucose Point of Care 104 mg/dl (65-105)
--- NOTE | 2023-06-14 03:27 | ADMGEN ---
This patient, Bibi Castillo, was admitted to IMU Room 207-01 at 0314. Patient/family oriented to hospital policies and general routines including ID bracelet, bed and alarms, visiting hours, pain management, procedures, bathroom and other care routines, personal items, smoking policy, room service/diet, and visiting hours. Information on how to activate the Rapid Response Team has been discussed. Patient/Family are encouraged to report perceived risks to care and to ask questions if they do not understand what they are told or what they should do.
[2023-06-14] MEDS: DEXTROSE 5%/0.9% SOD CHL 1,000 ML 125 ML IV CONT (03:42)
[2023-06-14 05:34] LABS: Basophils Percent Auto 0.5 % (0.2-1.2); Eosinophils Absolute Auto 0.2 K/mm3 (0-0.3); Eosinophils Percent Auto 2.7 % (0-4.4); Hematocrit 31.7 % (37.0-47.0); Hemoglobin 9.9 g/dL (12.0-15.0); Immature Granulocyte Absolute 0.02 K/mm3 (0.00-0.031); Immature Granulocyte Percent A 0.3 % (0-0.5); Lymphocytes Absolute Auto 1.17 K/mm3 (0.9-3.2); Lymphocytes Percent Auto 18.3 % (18.3-44.2); Mean Corpuscular HGB Conc 31.2 g/dl (32-36); Mean Corpuscular Hemoglobin 28.6 pg (26-34); Mean Corpuscular Volume 91.6 fl (80-100); Mean Platelet Volume 9.4 fl (7.4-10.4); Monocytes Absolute Auto 0.5 K/mm3 (0.1-0.6); Neutrophils Absolute Auto 4.5 K/mm3 (1.3-6.7); Neutrophils Percent Auto 70.2 % (45.5-73.1); Platelet Count Result 227 k/mm3 (150-375); Red Blood Count 3.46 M/mm3 (4.2-5.4); Red Cell Distribution Width 12.4 % (11.5-14.5); White Blood Count 6.4 K/mm3 (4.5-10.0)
[2023-06-14 05:50] LABS: Estimated CRCL calculation 125 ml/min; Estimated Glomerular Filt Rate > 60
[2023-06-14 06:02] LABS: Anion Gap 4 mmol/L (8-16); Blood Urea Nitrogen 8 mg/dL (7-17); Calcium 7.6 mg/dL (8.4-10.2); Carbon Dioxide 26 mmol/L (22-30); Chloride 109 mmol/L (98-107); Estimated CRCL calculation 125 ml/min; Estimated Glomerular Filt Rate > 60; Glucose 98 mg/dL (65-110); Potassium 3.4 mmol/L (3.4-5.0); Sodium 139 mmol/L (137-145)
[2023-06-14] MEDS: LORazepam INJ (*CRX) 2 MG/ML VIAL IV PUSH (10:29)
--- NOTE | 2023-06-14 11:00 | PC.NURSE ---
At 1055, this RN called to bedside by Dr Barbosa due to patient's lack of responsiveness. Informed MD that patient received 2 mg of Ativan for a CIWA of 21 at 1029. Vital signs obtained, BP 89/47, RR 13, sp02 95% on RA, HR 51. Order obtained for 500 mL NS bolus x1, order for PRN Ativan changed from 2 mg to 1 mg, continuous pulse ox placed on patient.
[2023-06-14] MEDS: VANCOMYCIN 1,000 MG/NS 250 ML 1,000 MG/250 ML BAG 250 MG IVPB (12:40)
[2023-06-14] MEDS: SODIUM CHLORIDE 0.9% IV 500 ML IV CONT (12:42)
--- NOTE | 2023-06-14 13:01 | PM.CNGS ---
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 Patient had these debrided 6 months ago but continued to inject heroin into the area and now the area has multiple places with necrosis. She will need to be taken to the operating room for debridement as the entire area is very tender in the wounds are extensive. Plan to proceed with operative debridement tomorrow afternoon. I discussed this with the patient who agrees to go ahead. For now will dress with silver gel, gauze, and ABDs. Very difficult problem in opiate addicted patient. (2) Opioid abuse with intoxication: Code(s): F11.129 - Opioid abuse with intoxication, unspecified Status: Chronic (3) Heroin addiction: Code(s): F11.20 - Opioid dependence, uncomplicated Status: Chronic (4) Tobacco dependence: Code(s): F17.200 - Nicotine dependence, unspecified, uncomplicated Status: Chronic (5) Alcoholism: Code(s): F10.20 - Alcohol dependence, uncomplicated Status: Chronic History of Present Illness Consult details Consult date: 06/14/23 Reason for consult: other (Multiple wounds with necrosis and infection buttocks) Requesting physician: Scott Arroyo MD Narrative: Patient is a 33-year-old woman who actively injects heroin into her hips and buttocks. She also drinks about a pint of vodka daily. She was admitted here 6 months ago in seen by my partner Dr. Melendez. At that time she had multiple wounds with necrosis of both buttocks from these injections. It was described as a 10 x 10 cm area. Patient had debridement and was discharged to use wound care but began injecting heroin again well before the wounds were healed. She came to the emergency room yesterday with recurrent and painful buttocks wounds which were reportedly draining purulent fluid and had necrosis. She had used heroin and drank her usual amount of vodka yesterday before coming to the emergency room. She lives with a friend who had advised her to seek medical treatment. In the emergency room it was noted that her white count was normal and she had no fever. She is seen now in consultation regarding the multiple wounds with infection of bilateral buttocks. Review of Systems Review of Systems: All systems reviewed & are unremarkable except as noted in HPI and below (HPI and those items noted below) Constitutional: Constitutional: Denies chills and Denies fever(s) Cardiovascular: Cardiovascular: Denies chest pain, Denies diaphoresis, Denies dyspnea and Denies paroxysmal nocturnal dyspnea Respiratory: Respiratory: Denies chest congestion, Denies cough and Denies dyspnea Gastrointestinal: Gastrointestinal: Denies abdominal pain, Denies change in bowel habits, Reports early satiety and Denies vomiting Integumentary/Breasts: Skin/Breast: Reports as per HPI, Reports skin ulcer, Reports sores and Reports wounds PMFSH Past Medical History Medical History Bipolar 1 disorder Heroin addiction Surgical History Surgical History History of section History of incision and drainage Infected abscesses in debridement of ulcers across buttocks and hips 12/14/2022 Family History Family History Unknown Adopted Social History Social History Social History: She had one daughter and she passed at the age of 64 years old. She reports that her child was murdered by child's paternal grandmother
[2023-06-14] MEDS: ENOXAPARIN 40 MG/0.4 ML SYRINGE SUB-Q (13:16)
--- NOTE | 2023-06-14 13:34 | PM.IMPN ---
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 The wounds are longstanding but some appear to be acutely infected with active drainage and necrosis. The patient has had history of MRSA infections in these wounds in the past. Patient was started on vancomycin and Levaquin. General Surgery was consulted. Wound cultures and Blood cultures were sent. Continue current abx. Appreciate Gen Surgery input (2) Acute hypotension: Code(s): I95.9 - Hypotension, unspecified Status: Acute Assessment and Plan: Patient was hypotensive in ED. Hypotension likely multifactorial due to recent heroin use, decreased oral intake, hypovolemia in the setting of acute infection. Hypotension resolved but lower now after Ativan given. Fluid bolus ordered. Will continue IV fluid hydration. Monitor blood pressures closely. (3) Opioid abuse with intoxication: Code(s): F11.129 - Opioid abuse with intoxication, unspecified Status: Chronic Assessment and Plan: Patient has a hx of narcotic and alcohol abuse. Ativan has been ordered based on CIWA scores. Patient is not candidate for Suboxone currently due to her active opiate use. As a compromise I have ordered oxycodone 5 mg q.6 hours the patient does have clear reasons for pain with her ulcers. However will not give the patient IV narcotics. Patient does also have a history of alcohol abuse. One dose of IV thiamin was provided. Will continue p.o. thiamin and MVI daily. She was poorly responsive after Ativan. Ativan dose cut back. Her personal items were searched and we found possible drugs and paraphernalia which were confiscated. Extensive discussion was held with the patient regarding changes in lifestyle and management of social stressors and coping mechanisms given her chronic drug addiction by the admitting provider. Patient did not seem committed to making long-term changes but is willing to continue with discussions. Monitor with CIWA (4) Alcoholism: Code(s): F10.20 - Alcohol dependence, uncomplicated Status: Chronic Assessment and Plan: As above (5) Weight loss: Code(s): R63.4 - Abnormal weight loss Status: Acute Assessment and Plan: Related to above. (6) Tobacco dependence: Code(s): F17.200 - Nicotine dependence, unspecified, uncomplicated Status: Chronic Assessment and Plan: Nicotine gum provided as needed for symptoms of nicotine withdrawal. Subjective Date/time seen: 06/14/23 13:34 Interval history: 33yo female with hx of bipolar d/o, heroin addiction and tobacco abuse here for buttock pain found to have cellulitis. Patient is somnolent but arouses. She had just received Ativan. Hx limited at this time. Her belongings were searched and possible drugs and paraphernalia found (given to security). Exam Narrative: AF 96.5 89/41 63 16 98% ra Gen - NARD Chest - clear to quiet respirations. nml RR CV - RRR S1/S2. Tele showing occasional bradycardia Abd - Soft, no apparent tenderness Ext - No pedal edema Neuro - somnolent, arouses easily. Skin - severe and multiple bilateral buttock lesions with areas of necrosis, ulcerations with clean bases and thick yellowish exudate. No significant surrounding erythema Objective Data Vital Signs Vital Signs: Vital Signs - 24 hr 06/13/23 17:31 06/13/23 21:42 06/13/23 21:00 Temperature 97.6 F Pulse Rate 61 46 L 53 L Respiratory Rate 16 14 16 Blood Pressure 99/67 L 83/57 L 91/65 L Pulse Oximetry 98 100 100 Oxygen Delivery 06/13/23 21:00
--- NOTE | 2023-06-14 15:13 | PM.DS ---
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: Code(s): L98.493 - Non-pressure chronic ulcer of skin of other sites with necrosis of muscle; L08.9 - Local infection of the skin and subcutaneous tissue, unspecified Status: Chronic (2) Acute hypotension: Code(s): I95.9 - Hypotension, unspecified Status: Acute (3) Opioid abuse with intoxication: Code(s): F11.129 - Opioid abuse with intoxication, unspecified Status: Chronic (4) Alcoholism: Code(s): F10.20 - Alcohol dependence, uncomplicated Status: Chronic (5) Weight loss: Code(s): R63.4 - Abnormal weight loss Status: Acute (6) Tobacco dependence: Code(s): F17.200 - Nicotine dependence, unspecified, uncomplicated Status: Chronic DS: Summary Hospital Course Reason for hospitalization: 33yo female with hx of bipolar d/o, heroin addiction and tobacco abuse here for buttock pain found to have cellulitis. Please see H&P for details. Hospital Course: Patient was found to have multiple large infected decubitus ulcers from skin popping and associated abscesses bilateral buttocks. The wounds are longstanding but some appear to be acutely infected with active drainage and necrosis. The patient has had history of MRSA infections in these wounds in the past.? Patient was started on vancomycin and Levaquin. General Surgery was consulted. Wound cultures and Blood cultures were sent. Patient was hypotensive in ED. Hypotension likely multifactorial due to recent heroin use, decreased oral intake, hypovolemia in the setting of acute infection.? Hypotension resolved but lower after Ativan given (and posibly she took street drugs). Fluid bolus ordered. She was continued on IV fluid hydration.?Patient has a hx of narcotic and alcohol abuse. Ativan was ordered based on CIWA scores.?Patient does also have a history of alcohol abuse.? One dose of IV thiamin was provided.?We continued p.o. thiamin and MVI daily.? She was poorly responsive after Ativan (and possibly street drugs). Ativan dose cut back. Her personal items were searched and we found possible drugs and paraphernalia which were confiscated. Extensive discussion was held with the patient regarding changes in lifestyle and management of social stressors and coping mechanisms given her chronic drug addiction by the admitting provider.? Patient did not seem committed to making long-term changes but is willing to continue with discussions. Patient became more awake and alert. She became irate that we looked through her belongings and decided to sign herself out against medical advise which I was informed of after the fact so unable to discuss with patient prior to her leaving. Time Spent with Patient Time attestation: Total time spent providing and/or coordinating discharge services: 34 minutes Time spent: Greater than 30 minutes Exam Narrative: AF 96.5 89/41 63 16 98% ra Gen - NARD Chest - clear to quiet respirations. nml RR CV - RRR S1/S2. Tele showing occasional bradycardia Abd - Soft, no apparent tenderness Ext - No pedal edema Neuro - somnolent, arouses easily. Skin - severe and multiple bilateral buttock lesions with areas of necrosis, ulcerations with clean bases and thick yellowish exudate. No significant surrounding erythema DS: Data Data Completed and Pending Labs on day of discharge: Labs from last 24 hours 06/14/23 06/14/23 06/14/23 05:09 04:58 02:45 WBC 6.4 RBC 3.46 L Hgb 9.9 L Hct 31.7 L MCV 91.6 MCH 28.6 MCHC 31.2 L RDW 12.4 Plt Count 227 MPV 9.4 Immature Gran % (Auto) 0.3 Neut % (Auto) 70.2 Lymph % (Auto) 18.3 [place] % (Auto) 8.0 Eos % (Auto) 2.7 Baso % (Auto) 0.5 Lymph # (Auto) 1.17 [place] # (Auto) 0.5 Eos # (Auto) 0.2 Baso # (Auto) 0.0
--- NOTE | 2023-06-18 11:51 | PC.NURSE ---
Wound cx growing MRSA. Informed Dr. Barbosa of lab findings. Order to contact pt and have her return to ED so she can be admitted for treatment. Called pt and left message for her to return my call.
--- NOTE | 2023-06-19 09:29 | PC.NURSE ---
Called pt regarding MRSA in wound cx. No answer.
--- NOTE | 2023-06-23 09:55 | PC.NURSE ---
Blood cx are negative. Dr. Familia lloyd.
== END 2023-06-14 14:11 | disposition left against medical advice (07) | DRG 380 ==
LOC: ANHED 06-14 01:37 → ANHIMU 06-14 02:52
PROVIDERS: Admitting Provider Internal Medicine; Emergency Provider Emergency Medicine; PCP Nurse Practitioner Family; Visit Provider Internal Medicine
DX: L89.319 Pressure ulcer of right buttock, unspecified stage (principal); E43 Unspecified severe protein-calorie malnutrition; L89.329 Pressure ulcer of left buttock, unspecified stage; I95.9 Hypotension, unspecified; L03.317 Cellulitis of buttock; L08.9 Local infection of the skin and subcutaneous tissue, unspecified; B96.5 Pseudomonas (aeruginosa) (mallei) (pseudomallei) as the cause of diseases classified elsewhere; F17.210 Nicotine dependence, cigarettes, uncomplicated; F10.20 Alcohol dependence, uncomplicated; F31.9 Bipolar disorder, unspecified; F11.20 Opioid dependence, uncomplicated; Z86.14 Personal history of Methicillin resistant Staphylococcus aureus infection; Z68.1 Body mass index [BMI] 19.9 or less, adult
CPT/HCPCS: 36415; 71045; 74177; 80048; 80053; 80307; 81001; 81025; 82565; 82948; 83605; 83690; 85025; 85610; 85730; 86140; 87040; 87070; 87077; 87147; 87181; 87186; 87205; 96365; 96366; 99285; J1650; J1956; J2060; J3370; J3411; J7030; J7042; Q9967

== ENCOUNTER 2023-07-24 17:53 | Emergency (ER) | payer OTHER, SELFPAY ==
[2023-07-24 17:56] VITALS: BP 110/75; PULSE 67; RESP 12; O2SAT 96
--- NOTE | 2023-07-24 19:45 | PC.NURSE ---
patient seen walking out at this time.
--- NOTE | 2023-07-24 19:55 | PC.NURSE ---
patient left in [employer]er at this time. advised to come back to ER if symptoms get worse.
== END 2023-07-24 20:05 | disposition left against medical advice (07) ==
LOC: ANHED 20:01
PROVIDERS: PCP Nurse Practitioner Family
DX: R40.4 Transient alteration of awareness (principal)
CPT/HCPCS: 99199

== ENCOUNTER 2023-08-26 18:51 | Observation (INO) | payer OTHER, SELFPAY ==
[2023-08-26] VITALS (8 sets, daily range): BP systolic 95–115; BP diastolic 61–84; PULSE 53–64; RESP 12–15; TEMP 36.4; O2SAT 95–100
--- NOTE | ~2023-08-26 | XR_ITS ---
EXAMINATION: XR chest 1V portable Exam Date/Time: 08/26/2023 21:30 DENTAL SALES REPRESENTATIVE HISTORY: cough, Comparison: 06/05/2023. RESULT: Lines, tubes, and devices: None. Lungs and pleura: Clear. Cardiomediastinal silhouette: Stable. Other: No acute osseous or upper abdominal finding. IMPRESSION: No acute cardiopulmonary process. Reviewed, dictated and finalized at location [facility]. [place] SALES REPRESENTATIVE
--- NOTE | ~2023-08-26 | CT_ITS ---
CT of the Abdomen and Pelvis: Indication: Gluteal wounds Technique: 2.5 mm axial scans were obtained through the abdomen and pelvis following intravenous adm inistration of 100 cc of Omnipaque 350. Dose reduction technique was used on this scan by utilizing a utomated exposure control and iterative reconstruction technique. The dose-length product (DLP) was 2 08.81 mGy-cm. COMPARISON: 06/05/2023 Findings: Scans through the lung bases are unremarkable. The liver, spleen, pancreas, gallbladder, adrenals and kidneys are within normal limits. No evidence of aortic aneurysm. No lymphadenopathy. No bowel obstruction or bowel wall thickening. There is no evidence to suggest acute appendicitis. Images through the pelvis were performed. 3 cm adnexal cyst present. IUD present. Urinary bladder unr emarkable. No ascites. There is irregular soft tissue thickening/skin thickening of the bilateral glu teal regions, right worse than left. No distinct abscess evident. There are bilateral L5 pars interarticularis defects, with 10 mm anterolisthesis of L5 over S1. Impression: Skin thickening and irregularity of the bilateral gluteal regions, right worse than left, similar to prior exam. No distinct abscess evident. Stable bilateral L5 pars interarticularis defects, 10 mm anterolisthesis of L5 over S1. Reviewed, dictated and finalized at [facility]. ECTION DEVELOPMENT LIBRARIAN Impression: Skin thickening and irregularity of the bilateral gluteal regions, right worse than left, similar to prior exam. No distinct abscess evident. Stable bilateral L5 pars interarticularis defects, 10 mm anterolisthesis of L5 over S1.
--- NOTE | ~2023-08-26 | XR_ITS ---
Portable chest x-ray Comparison: 08/26/2023 Clinical History: Line placement Findings: Right IJ line is in satisfactory position. Lungs remain clear. No pneumothorax. Cardiomed iastinal silhouette is stable. Bones and soft tissues are unremarkable. Impression: Right IJ line in satisfactory position. Clear lungs. Reviewed, dictated and finalized at location . NCE SPECIALIST Impression: Right IJ line in satisfactory position. Clear lungs.
--- NOTE | 2023-08-26 21:38 | PC.NURSE ---
Registration was attempting to ask patient questions and patient would not respond. This RN had to sternal rub patient to get her to respond.
[2023-08-27] VITALS (36 sets, daily range): BP systolic 93–127; BP diastolic 55–91; PULSE 55–90; RESP 12–21; TEMP 36.4–36.9; O2SAT 97–100; BMI 19.6
--- NOTE | 2023-08-27 02:04 | ED.GENADULT ---
HPI - General Adult General Chief complaint: Wound/Laceration Stated complaint: buttock wound Time Seen by Provider: 08/26/23 21:23 History of Present Illness HPI narrative: Patient is a 33-year-old female who presents emergency department with chief complaint of wounds on the buttock area. Patient has history of drug use and does skin pop the patient reports that she has had debridement of wounds on her gluteal region in November reports that she has been having fevers and chills at home Related Data Home Medications Medication Instructions Recorded Confirmed No Home Medications 12/13/22 06/14/23 Allergies Allergy/AdvReac Type Severity Reaction Status Date / Time amoxicillin Allergy Hives Verified 06/14/21 05:38 Review of Systems Review of Systems: A 10 system review of systems was completed on the patient and is negative except for what is stated in the HPI. Nursing and ancillary documentation was reviewed. [facility] Past Medical History Medical History Bipolar 1 disorder Heroin addiction Surgical History Surgical History History of section History of incision and drainage Infected abscesses in debridement of ulcers across buttocks and hips 12/14/2022 Family History Family History Unknown Adopted Social History Social History Social History: She had one daughter and she passed at the age of 64 years old. She reports that her child was murdered by child's paternal grandmother. She has been using drugs heavily since that time approximately 12 years. She reports that she has been using heroin heavily usually twice a day since then. She had inpatient treatment for heroin abuse several years ago. She is single. She is currently living with a friend. She drinks a pint of hard liquor every day. Code status: Full code Smoking packs per day: 0.1 Smoking cigarettes per day: 2.0 Years smoked: 17 Smoking pack-years: 1.70 Smoking status: Current every day smoker Tobacco type: cigarettes Second hand tobacco smoke exposure: Yes Additional smoking assessment comments: also vapes Alcohol intake: current Alcohol use details: 1 pt of alcohol a day Substance use: current Substance use type: crack/cocaine and heroin Other substance usage details: 08/18 pint vodka Last use: pint/day-last drink noon06/13/ heroin and cocaine 06/13 Lack of Transportation: YES Lack of Food: Never True Current Housing: I Have Housing Concerned About Future Housing: YES Difficulty Paying Gas/Electric Bills: YES Difficulty Paying for Meds: No Currently Unemployed: YES Education: High School Diploma/GED Difficulty w/ Childcare or Family Care: No Spiritual care concerns: No Exam Narrative: GENERAL: Well-appearing, well-nourished, and in no acute distress. HEAD: Normocephalic, atraumatic. EYES: PERRLA and EOMI. ENT: Nares clear, no rhinorrhea or epistaxis. Mucous membranes moist. NECK: Supple. CHEST: Clear to auscultation. No respiratory distress. HEART: Regular rate and rhythm. No murmur heard. Normal peripheral pulses. ABDOMEN: Soft, nontender, nondistended, normal active bowel sounds. EXTREMITIES: Normal range of motion. No edema. SKIN: Multiple ulcerations to bilateral gluteal region NEURO: No focal deficits. Alert and oriented x3. PSYCH: Normal mood and affect. Course Vital Signs Vital signs: Vital Signs Temperature 36.4 C 08/26/23 19:18 Pulse Rate 64 08/26/23 19:18 Respiratory Rate 14 08/26/23 19:18 Blood Pressure 115/84 08/26/23 19:18 Pulse Oximetry 100 08/26/23 19:18 Oxygen Delivery Room Air 08/26/23 19:18 Temperature 36.4 C 08/26/23 19:18 Pulse Rate 69 08/27/23 06:23 Resp
[2023-08-27] MEDS: SODIUM CHLORIDE 0.9% IV 1,000 ML 999 ML IV CONT (02:21)
[2023-08-27] MEDS: CEFEPIME 2 GM/NS 50 ML 2 GM/50 ML BAG IVPB ×2 (02:22→11:36)
[2023-08-27 02:31] LABS: Basophils Absolute Auto 0.1 K/mm3 (0.0-0.1); Basophils Percent Auto 0.6 % (0.2-1.2); Eosinophils Absolute Auto 0.3 K/mm3 (0-0.3); Eosinophils Percent Auto 4.1 % (0-4.4); Hematocrit 32.1 % (37.0-47.0); Hemoglobin 9.6 g/dL (12.0-15.0); Immature Granulocyte Absolute 0.02 K/mm3 (0.00-0.031); Immature Granulocyte Percent A 0.3 % (0-0.5); Lymphocytes Absolute Auto 1.81 K/mm3 (0.9-3.2); Lymphocytes Percent Auto 23.3 % (18.3-44.2); Mean Corpuscular HGB Conc 29.9 g/dl (32-36); Mean Corpuscular Hemoglobin 26.2 pg (26-34); Mean Corpuscular Volume 87.7 fl (80-100); Mean Platelet Volume 9.2 fl (7.4-10.4); Monocytes Absolute Auto 0.8 K/mm3 (0.1-0.6); Monocytes Percent Auto 10.4 % (2.6-8.5); Neutrophils Absolute Auto 4.8 K/mm3 (1.3-6.7); Neutrophils Percent Auto 61.3 % (45.5-73.1); Platelet Count Result 365 k/mm3 (150-375); Red Blood Count 3.66 M/mm3 (4.2-5.4); Red Cell Distribution Width 13.2 % (11.5-14.5); White Blood Count 7.8 K/mm3 (4.5-10.0)
[2023-08-27 02:47] LABS: INR 1.1; Lactic Acid Reflex 1.2 mmol/L (0.7-2.0)
[2023-08-27 02:48] LABS: Alanine Aminotransferase 9 U/L (6-35); Albumin Level 3.2 g/dL (3.5-5.1); Alkaline Phosphatase 76 U/L (38-126); Anion Gap 5 mmol/L (8-16); Aspartate Amino Transferase 21 U/L (14-36); Bilirubin,Total 0.3 mg/dL (0.2-1.3); Blood Urea Nitrogen 12 mg/dL (7-17); CRP 1.5 mg/dL (<1.0); Calcium 8.3 mg/dL (8.4-10.2); Carbon Dioxide 30 mmol/L (22-30); Chloride 102 mmol/L (98-107); Estimated CRCL calculation 109 ml/min; Estimated Glomerular Filt Rate > 60; Glucose 87 mg/dL (65-110); Magnesium 1.8 mg/dL (1.6-2.3); Partial Thromboplastin Time 36.2 SECONDS (22.3-36.8); Potassium 3.4 mmol/L (3.4-5.0); Sodium 137 mmol/L (137-145)
[2023-08-27 03:06] LABS: Influenza A QL RT-PCR Negative (Negative); Influenza B QL RT-PCR Negative (Negative); RSV RNA, RT-PCR Negative (Negative); SARS-CoV-2 RNA PCR Negative (Negative)
[2023-08-27 03:09] LABS: Hypochromasia 1+ (NORMAL); Platelet Estimate Adequate (Adequate); Schistocytes None Seen (NORMAL)
[2023-08-27] MEDS: VANCOMYCIN 1,250 MG/NS 250 ML 1,250 MG/250 ML BAG 166.67 MG IVPB (03:21)
[2023-08-27 03:40] LABS: Erythrocyte Sedimentation Rate 73 mm/hr (0-20)
[2023-08-27 04:14] LABS: Procalcitonin 0.1 ng/mL
[2023-08-27 04:43] LABS: SPREG INTERNAL CONTROL Positive; Serum Qual hCG Negative
[2023-08-27 06:53] LABS: Estimated CRCL calculation 109 ml/min; Estimated Glomerular Filt Rate > 60
--- NOTE | 2023-08-27 08:16 | PC.NURSE ---
Standard heart healthy diet tray ordered. Advised dietary to send to room 331-2
[2023-08-27 08:25] LABS: Appearance Urine Clear (Clear); Bilirubin Urine Negative (Negative); Blood Urine Negative (Negative); Color Urine Yellow (Yellow); Glucose Urine UA Negative (Negative); Ketones Urine Negative (Negative); Leukocyte Esterase Ur Negative LEU/UL (Negative); Nitrate Urine Negative (Negative); Protein Urine Negative (Negative); Urobilinogen Urine 0.2 mg/dL (<2.0); pH Urine 5.5 (5.0-9.0)
[2023-08-27 08:28] LABS: Add Urine Microscopic? NO
--- NOTE | 2023-08-27 09:19 | ADMGEN ---
This patient, Bibi Castillo, was admitted to 3 [facility] Surg Room 331-01. Patient/family oriented to hospital policies and general routines including ID bracelet, bed and alarms, visiting hours, pain management, procedures, bathroom and other care routines, personal items, smoking policy, room service/diet, and visiting hours. Information on how to activate the Rapid Response Team has been discussed. Patient/Family are encouraged to report perceived risks to care and to ask questions if they do not understand what they are told or what they should do. changed dressings on buttocks, patient has been pleasant, ate a little of her breakfast, in bed. denies any needs at this time.
[2023-08-27] MEDS: VANCOMYCIN 1,000 MG/NS 250 ML 1,000 MG/250 ML BAG 250 MG IVPB (14:43)
--- NOTE | 2023-08-27 14:58 | PM.IMHP ---
H&P: HPI History of Present Illness Date/Time: 08/27/23 14:58 Chief Complaint: infected buttock wounds Narrative: 33 year old back again with similar complaints as last visit. past medical history of alcohol abuse, heroin abuse and multiple abscesses due to injection drug use who presented to the ER for worsening wounds on her buttocks that her draining.? The patient reports for the last several years she has had multiple episodes of infected wounds due to injecting heroin.? She usually injects her hips and buttocks.? She started injecting there instead of in the other is could she did not want people to see the areas of scarring. as stated in previous note- She has been using heroin heavily for about 12 years.? She always had some issues with dependence issues but her drug issues became worse when her mother in a killed her 6-year-old child and then committed suicide. Pt has had photos taken of the area and iv cef and iv vancomycin started wound and surgery teams will be consulted Review of Systems Review of Systems: Buttock pain and drainage PMFSH Past Medical History Medical History Bipolar 1 disorder Heroin addiction Surgical History Surgical History History of section History of incision and drainage Infected abscesses in debridement of ulcers across buttocks and hips 12/14/2022 Family History Family History Unknown Adopted Social History Social History Social History: She had one daughter and she passed at the age of 64 years old. She reports that her child was murdered by child's paternal grandmother. She has been using drugs heavily since that time approximately 12 years. She reports that she has been using heroin heavily usually twice a day since then. She had inpatient treatment for heroin abuse several years ago. She is single. She is currently living with a friend. She drinks a pint of hard liquor every day. Code status: Full code Smoking packs per day: 0.1 Smoking cigarettes per day: 2.0 Years smoked: 17 Smoking pack-years: 1.70 Smoking status: Current every day smoker Tobacco type: cigarettes Smokeless tobacco user: other Second hand tobacco smoke exposure: No Additional smoking assessment comments: uses vape Alcohol intake: current Drinks per week: 5 Alcohol use details: 1 pt of alcohol a day Substance use: current Substance use type: crack/cocaine and heroin Other substance usage details: heroin injections Last use: 08/26 Do You Feel Safe in your Home?: Yes Lack of Transportation: No Lack of Food: Never True Current Housing: I Have Housing Concerned About Future Housing: No Difficulty Paying Gas/Electric Bills: No Difficulty Paying for Meds: No Currently Unemployed: No Education: Trade/Vocational Certificate Difficulty w/ Childcare or Family Care: No Spiritual care concerns: No Meds Home Medications and Allergies Home Medications Medication Instructions Recorded Confirmed Type No Home Medications 12/13/22 08/27/23 History Allergies Allergy/AdvReac Type Severity Reaction Status Date / Time amoxicillin Allergy Hives Verified 06/14/21 05:38 Vital Signs Vital Signs - 24 hr 08/26/23 19:18 08/27/23 01:35 08/26/23 22:48 Temperature 36.4 C Pulse Rate 64 71 53 L Respiratory Rate 14 21 H 13 Blood Pressure 115/84 103/61 Pulse Oximetry 100 100 Oxygen Delivery Room Air 08/26/23 22:52 08/26/23 23:00 08/26/23 23:01 Temperature Pulse Rate 54 L 55 L 56 L Respiratory Rate 12 Blood Pressure 95/61 L Pulse Oximetry 95 95 100 Oxygen Delivery 08/26/23 23:15 08/26/23 23:30 08/26/23 23:45 Temperature Pulse Rate 53 L 53 L 54 L Respiratory Rate 13 15 Blood
--- NOTE | 2023-08-27 15:23 | PM.CNGS ---
Assessment and Plan Assessment and plan (1) Open wound of buttock, complicated: Code(s): S31.809A - Unspecified open wound of unspecified buttock, initial encounter Status: Acute Assessment and Plan: Innumerable open wounds on bilateral buttocks with severely scarred surrounding tissue due to repeated heroin injections. She admits to continued heroin use since last seen and actually used yesterday prior to coming into the ER. There are no abscesses, no surrounding cellulitis, or evidence of active infection. This all appears to be chronic and actually appears similar to when Dr. Levi saw her last May. We would recommend to continue local wound care with silver gel dressing changes and cover with ABD pads and mesh underwear. IV antibiotics can be stopped and we would recommend that her central line be removed. Okay for discharge from our standpoint with wound care and follow-up in the wound clinic in 2 weeks. (2) Heroin addiction: Code(s): F11.20 - Opioid dependence, uncomplicated Status: Chronic Assessment and Plan: Continues to contribute to her chronic problems. Discussed with her that if she continues to inject heroin, her wounds will not improve and could lead to further infections, sepsis, or more extensive problems. Recommended psychological assistance and rehab. (3) Alcoholism: Code(s): F10.20 - Alcohol dependence, uncomplicated Status: Chronic Plan I have discussed the patient's case and plan of care with Dr. Levi. Thank you for allowing us to see the patient in consultation and we will continue to follow along with you. History of Present Illness Consult details Consult date: 08/27/23 Reason for consult: other (Bilateral buttock wounds) Requesting physician: Laurie Gonzalez MD Narrative: Patient is a 33-year-old woman who actively injects heroin into her hips and buttocks.? She also drinks about a pint of vodka daily.? She has been admitted several times due to her buttock wounds and the last two times she left AMA. She was admitted here in November of [address] Melendez.? At that time, she had multiple wounds with necrosis of both buttocks from these injections. Patient had debridement and was discharged to use wound care but began injecting heroin again well before the wounds were healed.? She came back in May of 2023 and left AMA prior to have surgery that was scheduled the following day. She presented back to the ER last night with complaints of lower extremity swelling and pain, as well as buttock pain. Labs showed a normal WBC count. Her CT of the abdomen and pelvis showed skin thickening and irregularity of bilateral buttocks right worse than left, no CT evidence of abscess. She was admitted to the Hospitalist and started on IV antibiotics. Wound care was consulted and our service has now been consulted for the bilateral buttock wounds. She admits to continuing to inject heroin since her last admission. Review of Systems Review of Systems: All systems reviewed & are unremarkable except as noted in HPI and below PMFSH Past Medical History Medical History Bipolar 1 disorder Heroin addiction Surgical History Surgical History History of section History of incision and drainage Infected abscesses in debridement of ulcers across buttocks and hips 12/14/2022 Family History Family History Unknown Adopted Social History Social History Social History: She had one daughter and she passed at the age of 64 years old. She reports that her child was murdered by child's paternal grandmother. She has been using drugs heavily since that time approximately 12 years. She reports that she has been using heroin heavily usually twice a day since then.
--- NOTE | 2023-08-27 16:11 | PM.DS ---
DS: Admitting Diagnosis Discharge Date 08/27/2023 Admitting Diagnosis Infected buttock wounds DS: Discharge Diagnosis Discharge Diagnosis (1) Open wound of buttock, complicated: Code(s): S31.809A - Unspecified open wound of unspecified buttock, initial encounter Status: Acute (2) Active intravenous drug use: Code(s): F19.90 - Other psychoactive substance use, unspecified, uncomplicated Status: Acute (3) Tobacco dependence: Code(s): F17.200 - Nicotine dependence, unspecified, uncomplicated Status: Chronic (4) Skin ulceration: Code(s): L98.499 - Non-pressure chronic ulcer of skin of other sites with unspecified severity Status: Acute Assessment and Plan: History of Iv heroin use and injecting into hips and buttock area (5) Cellulitis and abscess of buttock: Code(s): L02.31 - Cutaneous abscess of buttock; L03.317 - Cellulitis of buttock Status: Acute Assessment and Plan: wound care consulted [facility] appears nl continue iv cefepime and i v vancomycin consult surgery team after surgery consultation pt is known patient wound look more chronic pt can be dc without any IV abx (6) Opioid abuse with intoxication: Code(s): F11.129 - Opioid abuse with intoxication, unspecified Status: Chronic Assessment and Plan: halfway use of iv heroin Order Iv ativan in hospital Pt left AMA in prior admission Pt can be dc today DS: Summary Hospital Course Hospital Course: 33 year old back again with similar complaints as last visit. past medical history of alcohol abuse, heroin abuse and multiple abscesses due to injection drug use who presented to the ER for worsening wounds on her buttocks that her draining.? The patient reports for the last several years she has had multiple episodes of infected wounds due to injecting heroin.? She usually injects her hips and buttocks.? She started injecting there instead of in the other is could she did not want people to see the areas of scarring. as stated in previous note- She has been using heroin heavily for about 12 years.? She always had some issues with dependence issues but her drug issues became worse when her mother in a killed her 6-year-old child and then committed suicide. Pt has had photos taken of the area and iv cef and iv vancomycin started wound and surgery teams will be consulted. Pt seen by surgery team in hospital ok to dc with surgery clinic follow up. Can dc with out any oral abx, pt to have central line removed prior to dc. Time Spent with Patient Time attestation: Total time spent providing and/or coordinating discharge services:40 minutes on day of dc Exam Narrative: Weight 49.7 kg BMI 18.8 Const: Other: Appears much older than stated age, disheveled, acutely ill-appearing HENMT: Other: Mucous membranes are tacky, upper and lower dentures in place Eyes: Other: Pupils are equal and reactive, no scleral icterus, mild conjunctival erythema Neck: Other: No JVD, no gross lymphadenopathy Resp: Other: Clear to auscultation bilaterally, no increased work of breathing Cardio: Other: Regular rate, regular rhythm, 2+ bilateral radial pedal pulses GI: Other: Firm, nondistended, flat, difficult to assess abdomen due to the patient's abdomen the firm, hypoactive bowel sounds Back/Spine/Pelvis: Other: R side of hip and buttock large red area with smaller infected zones with little greenish drainage Skin: Other: Generalized pallor, multiple areas of scarring Neuro: Other: Alert oriented x4, speech is clear, no facial asymmetry, moves all extremities equally, no gross motor deficits noted Extrem: Other: No clubbing, cyanosis or edema Psych: Other: Anxious, restless, reactive, jump to conclusions, impulsive, poor judgment and insight DS: Data Data Completed and Pending Labs on day of discharg
== END 2023-08-27 18:15 | disposition home or self-care (01) ==
LOC: ANHED 08-27 06:49 → ANH3MEDSUR 08-27 10:23
PROVIDERS: Admitting Provider Internal Medicine; Emergency Provider Emergency Medicine; PCP Nurse Practitioner Family; Visit Provider Family Medicine
DX: S31.829A Unspecified open wound of left buttock, initial encounter (principal); S31.819A Unspecified open wound of right buttock, initial encounter; X58.XXXA Exposure to other specified factors, initial encounter; F31.9 Bipolar disorder, unspecified; Z20.822 Contact with and (suspected) exposure to COVID-19; F17.210 Nicotine dependence, cigarettes, uncomplicated; F19.90 Other psychoactive substance use, unspecified, uncomplicated; F11.129 Opioid abuse with intoxication, unspecified; F14.90 Cocaine use, unspecified, uncomplicated; F10.20 Alcohol dependence, uncomplicated
CPT/HCPCS: 36415; 36556; 71045; 74177; 80053; 81003; 82565; 83605; 83735; 84145; 84703; 85025; 85610; 85652; 85730; 86140; 87040; 87637; 96365; 96366; 96367; 96376; 99285; C1751; G0379; J0692; J3370; J7030; Q9967

== ENCOUNTER 2023-12-10 07:30 | Outpatient (RCR) | payer OTHER, SELFPAY ==
[2023-09-24 09:22] VITALS: BMI 19.9
== END 2023-12-23 23:59 | disposition home or self-care (01) ==
LOC: ANHWOC 07:30
PROVIDERS: PCP Nurse Practitioner Family; Visit Provider Surgery
DX: S31.809A Unspecified open wound of unspecified buttock, initial encounter (principal); L98.499 Non-pressure chronic ulcer of skin of other sites with unspecified severity; L02.31 Cutaneous abscess of buttock; L03.317 Cellulitis of buttock
CPT/HCPCS: 99213; 99214; G0463

== ENCOUNTER 2024-03-11 07:07 | Outpatient (RCR) | payer OTHER, SELFPAY ==
[2023-12-24 00:03] VITALS: BMI 19.9
--- NOTE | 2024-01-14 10:51 | PCWOUND ---
WOCN NOTE Patient again no showed no called to cancel appointment for today 01/14/24. Patient was contacted yesterday 01/13/24 to remind patient of appointment today and that she needed to go through registration. Patient stated understanding and that she would be at appointment. This is the second no show appointment for patient, first no show was on 12/24/23.
--- NOTE | 2024-02-23 09:39 | PCWOUND ---
WOCN NOTE Patient cancelled due to illness
== END 2024-04-24 23:59 | disposition home or self-care (01) ==
LOC: ANHWOC 07:07
PROVIDERS: PCP Nurse Practitioner Family; Visit Provider Surgery
DX: S31.809A Unspecified open wound of unspecified buttock, initial encounter (principal); L98.499 Non-pressure chronic ulcer of skin of other sites with unspecified severity; L02.31 Cutaneous abscess of buttock; L03.317 Cellulitis of buttock
CPT/HCPCS: 87070; 87077; 87181; 87205; 99214; G0463